=== PATIENT | female | born 1990 | race Caucasian/White ===

== ENCOUNTER 2016-12-26 11:12 | Emergency (ER) | payer OTHER ==
[2016-12-26 11:38] VITALS: BP 144/87
--- NOTE | 2016-12-26 12:02 | UC ---
Respiratory Complaint HPI - HPI Summary HPI Summary: pt presents with onset of cough and nasal congestion. Pt reports being diagnosed with pneumonia ~3 weeks ago. Was given and completed prescription for levaquin. Reports that symptoms were alleviated. states taht now she has dry, hacking cough, chills and nasal congestion. - History of Current Complaint Chief Complaint: UCRespiratory Stated Complaint: COUGH Time Seen by Provider: 12/26/16 11:46 Hx Obtained From: Patient Hx Last Menstrual Period: 12/21/16 ?: No Onset/Duration: Gradual Onset, Lasting Days Severity Initially: Mild Severity Currently: Mild Character: Cough: Nonproductive Aggravating Factors: Deep Breaths, Recumbent Position Associated Signs And Symptoms: Positive: URI, Nasal Congestion Related History: Seasonal Allergies - Risk Factors Pulmonary Embolism Risk Factors: Smoking Cardiac Risk Factors: Smoking - Allergies/Home Medications Allergies/Adverse Reactions: Allergies Allergy/AdvReac Type Severity Reaction Status Date / Time Aspirin Allergy Severe See Comment Verified 12/26/16 11:30 Erythromycin Allergy Severe Hives Verified 12/26/16 11:30 Latex Allergy Severe See Comment Verified 12/26/16 11:30 Home Medications: Home Medications Benzonatate CAP* [Tessalon CAP*] 100 mg PO TID 12/26/16 [History Confirmed 12/26] GuaiFENesin DM* [Robitussin DM*] 5 ml PO Q6H PRN 12/26/16 [History Confirmed 03/09] PMH/Surg Hx/FS Hx/Imm Hx Previously Healthy: Yes Endocrine History Of: Denies: Thyroid Disease Comment Only: Diabetes - FAMILY HX Cardiovascular History Of: Denies: Cardiac Disorders, Hypertension Respiratory History Of: Reports: Asthma Denies: COPD GI/ History Of: Denies: Ulcer Psychological History Of: Reports: Anxiety - Surgical History Surgical History: Yes Surgery Procedure, Year, and Place: R knee; tubes in ears; appendectomy, cholecystectomy, - Family History Known Family History: Positive: None, Hypertension, Diabetes - Social History Lives: With Family Alcohol Use: None Substance Use Type: None Smoking Status (MU): Light Every Day Tobacco Smoker Type: Cigarettes Amount Used/How Often: 3 cigs per day Length of Time of Smoking/Using Tobacco: 10 years Have You Smoked in the Last Year: Yes Household Exposure Type: Cigarettes - Immunization History Most Recent Influenza Vaccination: fall 2015 Review of Systems Constitutional: Chills Skin: Negative Eyes: Negative ENT: Other - nasal congestion Respiratory: Cough Cardiovascular: Negative Gastrointestinal: Negative Genitourinary: Negative Motor: Negative Neurovascular: Negative Musculoskeletal: Negative Neurological: Negative Psychological: Negative All Other Systems Reviewed And Are Negative: Yes Physical Exam Triage Information Reviewed: Yes Appearance: Well-Appearing Vital Signs: Initial Vital Signs Temp 97.5 F 12/26/16 11:32 Pulse 90 12/26/16 11:32 Resp 16 12/26/16 11:32 BP 144/87 12/26/16 11:32 Pulse Ox 97 12/26/16 11:32 Vital Signs Reviewed: Yes ENT Exam: Other ENT: Positive: Nasal congestion Neck exam: Normal Respiratory Exam: Normal Cardiovascular Exam: Normal Musculoskeletal Exam: Normal Neurological Exam: Normal Psychological Exam: Normal Skin Exam: Normal UC Diagnostic Evaluation - Laboratory O2 Sat by Pulse Oximetry: 97 Respiratory Course/Dx - Differential Dx/Diagnosis Differential Diagnosis/HQI/PQRI: Bronchitis, Influenza, Other - URI Provider Diagnoses: URI. cough Discharge - Discharge Plan Condition: Stable Disposition: HOME Prescriptions: Albuterol HFA INHALER* [Ventolin HFA Inhaler*] 1 - 2 puff INH Q4H PRN #1 mdi PRN Reason: Cough predniSONE TAB* [Deltasone TAB*] 30 mg PO DAILY #12 tab Patient Education Materials: Upper Respiratory Infection (ED), Acute Cough (ED) Referrals: [facility] [place] [facility] [Outside] No Primary Care Phys,NOPCP [Primary Care Provider] -
== END 2016-12-26 12:19 | disposition home or self-care (01) ==
LOC: UCEAST 11:12
DX: J06.9 Acute upper respiratory infection, unspecified (principal); R05 Cough; R03.0 Elevated blood-pressure reading, without diagnosis of hypertension; Z88.6 Allergy status to analgesic agent; Z88.1 Allergy status to other antibiotic agents; Z90.49 Acquired absence of other specified parts of digestive tract; F17.210 Nicotine dependence, cigarettes, uncomplicated
CPT/HCPCS: 99212; G0463

== ENCOUNTER 2017-04-16 15:27 | Emergency (ER) | payer MEDICAID, OTHER ==
[2017-04-16] MEDS ORDERED: NS 0.9% 1000 ML* 1,000 ML IV ONE (15:51)
[2017-04-16] MEDS ORDERED: Ondansetron INJ* 2 MG/ML VIAL IV ONE (16:04)
[2017-04-16] MEDS ORDERED: Morphine INJ* 4 MG/ML 1 ML SYRINGE IV ONE (16:04)
--- NOTE | 2017-04-16 16:37 | RAD ---
INDICATION: Kidney stone last week, increased pain. COMPARISON: Comparison is made with a prior CT of the abdomen and pelvis from May 28, 2010. TECHNIQUE: Frontal supine films of the abdomen were obtained. FINDINGS: The small bowel and colon appear nondistended. No significant abnormal calcifications are seen. Several surgical clips are noted in the right upper quadrant consistent with a prior cholecystectomy. IMPRESSION: NO CALCULI ARE SEEN.
[2017-04-16 16:41] LABS: Calcium 9.6 mg/dL (8.6-10.3); EGFR African American 130.3 (>60); EGFR Non-African American 101.3 (>60); Globulin 3.2 g/dL (2-4); Potassium 4.1 mmol/L (3.5-5.0); Total Bilirubin 0.4 mg/dL (0.2-1.0); Total Protein 7.2 g/dL (6.4-8.9); Urine Bacteria Absent (Absent); Urine Bilirubin Negative (Negative); Urine Glucose Negative (Negative); Urine Nitrite Negative (Negative)
[2017-04-16 17:06] LABS: Hematocrit 45 % (35-47); Hemoglobin 14.8 g/dl (12.0-16.0); Mean Corpuscular HGB Conc 33 g/dl (31-36); Mean Corpuscular Hemoglobin 28 pg (27-31); Mean Corpuscular Volume 83 fL (80-97); Mean Platelet Volume 8 um3 (7.4-10.4); Red Blood Count 5.38 10^6/ul (4.0-5.4); Red Cell Distribution Width 15 % (10.5-15); White Blood Count 11.1 10^3/ul (3.5-10.8)
--- NOTE | 2017-04-16 17:16 | ED ---
GI/ HPI - HPI Summary HPI Summary: 26F presents with bilateral flank pain for a week. She states she went to [facility] and had a work up on 04/10 and had a kidney stone unsure what side or how large. She states she was taking flomax and norco and it was helping. She finished her flomax a couple days ago and states the pain increased. She states she had thought she had passed the stone but never felt it pass and now is unsure if it did pass. She admits to nausea occasionally when the pain is intense. She denies any abdominal pain, dysuria, hematuria, frequency, urgency , diarrhea, vaginal discharge, fever, constipation, or vomiting. She has a family history of kidney stones. - History of Current Complaint Chief Complaint: EDFlankPain Time Seen by Provider: 04/16/17 15:50 Stated Complaint: LOWER BACK PAIN Pain Intensity: 8 - Allergy/Home Medications Allergies/Adverse Reactions: Allergies Allergy/AdvReac Type Severity Reaction Status Date / Time Aspirin Allergy Severe See Comment Verified 12/26/16 11:30 Erythromycin Allergy Severe Hives Verified 12/26/16 11:30 Latex Allergy Severe See Comment Verified 12/26/16 11:30 PMH/Surg Hx/FS Hx/Imm Hx Endocrine/Hematology History: Denies: Hx Thyroid Disease Comment Only: Hx Diabetes - FAMILY HX Cardiovascular History: Denies: Hx Hypertension Respiratory History: Reports: Hx Asthma Denies: Hx Chronic Obstructive Pulmonary Disease (COPD) GI History: Denies: Hx Ulcer Psychiatric History: Reports: Hx Anxiety - Surgical History Surgery Procedure, Year, and Place: R knee; tubes in ears; appendectomy, cholecystectomy, - Immunization History Date of Tetanus Vaccine: within 10 years per pt. Date of Influenza Vaccine: 09/2012 Infectious Disease History: No Infectious Disease History: Denies: Hx Clostridium Difficile, Hx Hepatitis, Hx Human Immunodeficiency Virus (HIV), Hx of Known/Suspected MRSA, Hx Shingles, Hx Tuberculosis, Hx Known/ Suspected VRE, Hx Known/Suspected VRSA, History Other Infectious Disease, Traveled Outside the [place] in Last 30 Days - Family History Known Family History: Positive: None, Hypertension, Diabetes, Renal Disease - Social History Alcohol Use: None Substance Use Type: Reports: None Smoking Status (MU): Light Every Day Tobacco Smoker Type: Cigarettes Amount Used/How Often: 3 cigs per day Length of Time of Smoking/Using Tobacco: 10 years Have You Smoked in the Last Year: Yes Review of Systems Negative: Fever Negative: Chest Pain Negative: Shortness Of Breath Positive: Nausea. Negative: Abdominal Pain, Vomiting, Diarrhea Positive: flank pain. Negative: dysuria All Other Systems Reviewed And Are Negative: Yes Physical Exam Triage Information Reviewed: Yes Vital Signs On Initial Exam: Initial Vitals Temp Pulse Resp BP Pulse Ox 98.1 F 91 17 176/101 98 04/16/17 15:30 04/16/17 15:30 04/16/17 15:30 04/16/17 15:30 04/16/17 15:30 Vital Signs Reviewed: Yes Appearance: Positive: Pain Distress Skin: Positive: Warm, Dry Head/Face: Positive: Normal Head/Face Inspection Eyes: Positive: Normal, Conjunctiva Clear ENT: Positive: Normal ENT inspection, Pharynx normal, TMs normal Respiratory/Lung Sounds: Positive: Clear to Auscultation, Breath Sounds Present Cardiovascular: Positive: Normal, RRR Abdomen Description: Positive: Nontender, Soft, CVA Tenderness (R), CVA Tenderness (L) Bowel Sounds: Positive: Present - Miranda Coma Scale Coma Scale Total: 15 Diagnostics - Vital Signs Vital Signs Temp Pulse Resp BP Pulse Ox 04/16/17 16:30 89 96 04/16/17 16:23 16 04/16/17 16:00 96 99 04/16/17 15:44 96 98 04/16/17 15:43 158/77 04/16/17 15:32 97.8 F 90 16 176/101 100 04/16/17 15:30 98.1 F 91 17 176/101 98 - Laboratory Lab Results: Lab Results 04/16/17 04/16/17 04/16/17 Range/Units 16:10 16:10 16:52 WBC 11.1 H (3.5-10.8) 10^3/ul RBC 5.38 (4.0-5.4) 10^6/ul Hgb 14.8 (12.0-16.0) g/dl Hct 45 (35-47) % MCV 83 (80-97) fL MCH 28 (27-31) pg MCHC 33 (31-36) g/dl RDW 15 (10.5-15) % Plt Count 248 (150-450) 10^3/ul MPV 8 (7.4-10.4) um3 Neut % (Auto) 64.8 (38-83) % Lymph % (Auto) 25.4 (25-47) % [place] % (Auto) 5.5 (1-9) % Eos % (Auto) 3.1 (0-6) % Baso % (Auto) 1.2 (0-2) % Absolute Neuts (auto) 7.2 (1.5-7.7) 10^3/ul Absolute Lymphs (auto) 2.8 (1.0-4.8) 10^3/ul Absolute Monos (auto) 0.6 (0-0.8) 10^3/ul Absolute Eos (auto) 0.3 (0-0.6) 10^3/ul Absolute Basos (auto) 0.1 (0-0.2) 10^3/ul Absolute Nucleated RBC 0.01 10^3/ul Nucleated RBC % 0 Sodium 136 (133-145) mmol/L Potassium 4.1 (3.5-5.0) mmol/L Chloride 105 (101-111) mmol/L Carbon Dioxide 23 (22-32) mmol/L Anion Gap 8 (2-11) mmol/L BUN 9 (6-24) mg/dL Creatinine 0.69 (0.51-0.95) mg/dL Est GFR ( Amer) 130.3 (>60) Est GFR (Non-Af Amer) 101.3 (>60) BUN/Creatinine Ratio 13.0 (8-20) Glucose 86 (70-100) mg/dL Calcium 9.6 (8.6-10.3) mg/dL Total Bilirubin 0.40 (0.2-1.0) mg/dL AST 16 (13-39) U/L ALT 11 (7-52) U/L Alkaline Phosphatase 48 (34-104) U/L C-React Prot High Sens 5.46 mg/L Total Protein 7.2 (6.4-8.9) g/dL Albumin 4.0 (3.2-5.2) g/dL Globulin 3.2 (2-4) g/dL Albumin/Globulin Ratio 1.3 (1-3) Urine Color Yellow Urine Appearance Cloudy Urine pH 5.0 (5-9) Ur Specific [place] 1.019 (1.010-1.030) Urine Protein Negative (Negative) Urine Ketones Negative (Negative) Urine Blood 2+ H (Negative) Urine Nitrate Negative (Negative) Urine Bilirubin Negative (Negative) Urine Urobilinogen Negative (Negative) Ur Leukocyte Esterase Negative (Negative) Urine WBC (Auto) Trace(0-5/hpf) (Absent) Urine RBC (Auto) 3+(>10/hpf) H (Absent) Ur Squamous Epith Cells Present H (Absent) Calcium Oxalate Crystal Present H (Absent) Urine Bacteria Absent (Absent) Hyaline Casts Present H (Absent) Urine Glucose Negative (Negative) Result Diagrams: 04/16/17 16:52 04/16/17 16:10 Lab Statement: Any lab studies that have been ordered have been reviewed, and results considered in the medical decision making process. - Radiology abd Xray Interpretation: No Acute Changes - no stone seen Radiology Interpretation Completed By: Radiologist LORRAINE Course/Dx - Course Course Of Treatment: 26F presents with bilateral flank pain for a week. She states she went to [facility] and had a work up on 04/10 and had a kidney stone unsure what side or how large. She states she was taking flomax and norco and it was helping but then the pain increased. She denies any new symptoms. on exam pos CVA tendernes bilateral greatest on right. labs wbc 11.1, crp 5, u/a shows blood. xray shows no stone. tried to get records from [facility] but unable to get them. discussed with dr steven and said due to blood and age is safe to assume that stone has not passed and is no infection at this point so safe to discharge without CT. discussed this with patient who does not want the CT. will assume [facility] sent home with appropiate size kidney stone that was able to pass on own. patient understands and agrees with plan - Diagnoses Differential Diagnoses - Female: Pyelonephritis, Renal Calculi, Renal Colic, Urinary Tract Infection, Ureteral Calculi Provider Diagnoses: Kidney stone Discharge - Discharge Plan Condition: Good Disposition: HOME Prescriptions: Ondansetron ODT TAB* [Zofran 4 MG Odt TAB*] 4 mg PO Q6H PRN #20 tab.odt PRN Reason: Nausea Tamsulosin CAP* [Flomax CAP*] 0.4 mg PO DAILY #7 cap oxyCODONE/Acetamin 5/325 MG* [Percocet 5/325 TAB*] 1 tab PO Q6H PRN #16 tab MDD 4 PRN Reason: Pain Patient Education Materials: Kidney Stones (ED) Referrals: No Primary Care Phys,NOPCP [Primary Care Provider] - Tu Dinero MD [Medical Doctor] - Additional Instructions: although no kidney stone was seen on xray today, we will assume still have kidney stone Take ibuprofen every 6 hours and narcotic as needed every 6 hours Inc fiber intake Take Zofran every 6 hours for nausea Take Flomax daily until stone expelled, make sure stand up slowly Follow up with urology Return to ED if develop fever, or any new or worsening symptoms
[2017-04-16 17:31] VITALS: BP 123/76
== END 2017-04-16 17:31 | disposition home or self-care (01) ==
LOC: ED 15:27
DX: N20.0 Calculus of kidney (principal); R10.84 Generalized abdominal pain; F17.210 Nicotine dependence, cigarettes, uncomplicated; R11.0 Nausea
CPT/HCPCS: 36415; 74000; 80053; 81003; 81015; 85025; 86141; 96374; 96375; 99284; J2270; J2405

== ENCOUNTER 2017-05-24 15:56 | Emergency (ER) | payer MEDICAID, OTHER ==
[2017-05-24 18:52] LABS: Hematocrit 45 % (35-47); Hemoglobin 15.1 g/dl (12.0-16.0); Mean Corpuscular HGB Conc 34 g/dl (31-36); Mean Corpuscular Hemoglobin 29 pg (27-31); Mean Corpuscular Volume 86 fL (80-97); Mean Platelet Volume 8 um3 (7.4-10.4); Red Blood Count 5.26 10^6/ul (4.0-5.4); Red Cell Distribution Width 15 % (10.5-15); White Blood Count 11.6 10^3/ul (3.5-10.8)
[2017-05-24 19:09] LABS: ALT 10 U/L (7-52); AST 16 U/L (13-39); Albumin 4.2 g/dL (3.2-5.2); Alkaline Phosphatase 50 U/L (34-104); Anion Gap 7 mmol/L (2-11); BUN/Creatinine Ratio 10.3 (8-20); Blood Urea Nitrogen 7 mg/dL (6-24); CO2 Carbon Dioxide 24 mmol/L (22-32); Calcium 9.4 mg/dL (8.6-10.3); Chloride 106 mmol/L (101-111); EGFR African American 132.5 (>60); Globulin 3.3 g/dL (2-4); Glucose 87 mg/dL (70-100); Lipase 27 U/L (11.0-82.0); Potassium 3.9 mmol/L (3.5-5.0); Sodium 137 mmol/L (133-145); Total Protein 7.5 g/dL (6.4-8.9)
[2017-05-24 19:12] LABS: Urine Bacteria Absent (Absent); Urine Bilirubin Negative (Negative); Urine Glucose Negative (Negative); Urine Nitrite Negative (Negative)
[2017-05-24] MEDS ORDERED: NS 0.9% 1000 ML* 1,000 ML IV ONE (19:33)
[2017-05-24] MEDS ORDERED: Ondansetron INJ* 2 MG/ML VIAL IV ONE (19:33)
[2017-05-24] MEDS ORDERED: HYDROmorphone* 1 MG/ML 1 ML SYR IV ONE (19:33)
[2017-05-24 19:42] VITALS: BP 125/93
--- NOTE | 2017-05-24 20:00 | RAD ---
INDICATION: Right flank pain COMPARISON: CT January 28, 2009 TECHNIQUE: Noncontrast axial source images were acquired from the level hemidiaphragms to the symphysis pubis as part of CT imaging for renal stone. Lung bases: The lung bases are clear. Liver: The liver is normal in size. Noncontrast imaging shows no evidence of a hepatic mass or ductal dilatation. Gallbladder: Cholecystectomy. Spleen: The spleen is normal in size. The noncontrast CT appearance is normal. Pancreas: Noncontrast imaging shows no pancreatic mass or ductal dilitation. Adrenal glands: No masses are identified. Kidneys/Bladder: There is no evidence of nephrolithiasis or CT evidence of hydronephrosis. Noncontrast imaging shows no evidence of a renal mass. The bladder is unremarkable.. Adenopathy: There is no evidence of intraperitoneal or retroperitoneal adenopathy. Evaluation is limited without oral contrast. Fluid collections: There are no free or localized fluid collections. Vessels: The aorta and iliac vessels are normal in caliber. There are no significant atherosclerotic changes. The IVC appears normal Pelvic organs: The uterus and adnexa appear normal GI tract: Evaluation of the bowel is limited without oral contrast. The stomach, small bowel, and lower GI tract appear grossly normal. There are no obstructive findings. There is prior appendectomy.. Soft tissues: No soft tissue abnormalities of the extraperitoneal abdomen or pelvis are identified. Osseous structures: There are no acute osseous findings. IMPRESSION: NO CT EVIDENCE OF UROLITHIASIS. NO ACUTE CT FINDINGS.
[2017-05-24 21:01] LABS: C Reactive Protein 5.55 mg/L (< 5.00)
--- NOTE | 2017-05-26 21:13 | ED ---
I, Ketan,Keara, scribed for Jeffrey eLong MD on 05/24/17 at 1732 . GI/ HPI - HPI Summary HPI Summary: This 26 y/o female presents to ED for gradually worsening right sided abd/flank pain since 3 days ago. Pain is constant but waxing and waning, and it radiates to right suprapubic area. Positive increased urinary urgency and decreased urinary output. Movement makes the pain worse. PMHx includes ovarian cyst and kidney stones. Pt does not take any medication. LMP was 05/09/2017. - History of Current Complaint Chief Complaint: EDFlankPain Time Seen by Provider: 05/24/17 17:25 Stated Complaint: RT FLANK PAIN Hx Obtained From: Patient, Medical Records Onset/Duration: Started Days Ago, Atraumatic, Still Present Pain Intensity: 8 Location of Pain: Flank - right Pain Radiates to: RLQ Associated Signs and Symptoms: Positive: Flank Pain - right. Negative: Fever Aggravating Factor(s): Movement Alleviating Factor(s): Nothing - Allergy/Home Medications Allergies/Adverse Reactions: Allergies Allergy/AdvReac Type Severity Reaction Status Date / Time Aspirin Allergy Severe See Comment Verified 12/26/16 11:30 Erythromycin Allergy Severe Hives Verified 12/26/16 11:30 Latex Allergy Severe See Comment Verified 12/26/16 11:30 PMH/Surg Hx/FS Hx/Imm Hx Endocrine/Hematology History: Denies: Hx Thyroid Disease Comment Only: Hx Diabetes - FAMILY HX Cardiovascular History: Denies: Hx Hypertension Respiratory History: Reports: Hx Asthma Denies: Hx Chronic Obstructive Pulmonary Disease (COPD) GI History: Denies: Hx Ulcer Psychiatric History: Reports: Hx Anxiety - Surgical History Surgery Procedure, Year, and Place: R knee; tubes in ears; appendectomy, cholecystectomy, - Immunization History Date of Tetanus Vaccine: within 10 years per pt. Date of Influenza Vaccine: 09/2012 Infectious Disease History: Denies: Hx Clostridium Difficile, Hx Hepatitis, Hx Human Immunodeficiency Virus (HIV), Hx of Known/Suspected MRSA, Hx Shingles, Hx Tuberculosis, Hx Known/ Suspected VRE, Hx Known/Suspected VRSA, History Other Infectious Disease, Traveled Outside the [place] in Last 30 Days - Family History Known Family History: Positive: Hypertension, Diabetes, Renal Disease - Social History Alcohol Use: None Substance Use Type: Reports: None Smoking Status (MU): Light Every Day Tobacco Smoker Type: Cigarettes Amount Used/How Often: 3 cigs per day Length of Time of Smoking/Using Tobacco: 10 years Have You Smoked in the Last Year: Yes Review of Systems Negative: Fever Positive: flank pain - right flank pain, urgency - increased, other - decreased output All Other Systems Reviewed And Are Negative: Yes Physical Exam Triage Information Reviewed: Yes Vital Signs On Initial Exam: Initial Vitals Temp Pulse Resp BP Pulse Ox 97.4 F 104 20 176/125 100 05/24/17 16:05 05/24/17 16:05 05/24/17 16:05 05/24/17 16:05 05/24/17 16:05 Vital Signs Reviewed: Yes Appearance: Positive: Well-Appearing, Pain Distress, Obese Skin: Positive: Warm, Skin Color Reflects Adequate Perfusion, Dry Head/Face: Positive: Normal Head/Face Inspection Eyes: Positive: Normal ENT: Positive: Normal ENT inspection Neck: Positive: Supple, Nontender Respiratory/Lung Sounds: Positive: Breath Sounds Present Cardiovascular: Positive: Pulses are Symmetrical in both Upper and Lower Extremities Abdomen Description: Positive: Other: - RLQ tenderness Musculoskeletal: Positive: Normal Psychiatric: Positive: Normal AVPU Assessment: Alert Diagnostics - Vital Signs Vital Signs Temp Pulse Resp BP Pulse Ox 05/24/17 17:10 99 97 05/24/17 16:07 164/117 05/24/17 16:05 97.4 F 104 20 176/125 100 - Laboratory Lab Results: Lab Results 05/24/17 05/24/17 05/24/17 Range/Units 17:07 18:40 18:40 WBC 11.6 H (3.5-10.8) 10^3/ul RBC 5.26 (4.0-5.4) 10^6/ul Hgb 15.1 (12.0-16.0) g/dl Hct 45 (35-47) % MCV 86 (80-97) fL MCH 29 (27-31) pg MCHC 34 (31-36) g/dl RDW 15 (10.5-15) % Plt Count 273 (150-450) 10^3/ul MPV 8 (7.4-10.4) um3 Neut % (Auto) 67.8 (38-83) % Lymph % (Auto) 24.2 L (25-47) % [place] % (Auto) 4.4 (1-9) % Eos % (Auto) 2.6 (0-6) % Baso % (Auto) 1.0 (0-2) % Absolute Neuts (auto) 7.9 H (1.5-7.7) 10^3/ul Absolute Lymphs (auto) 2.8 (1.0-4.8) 10^3/ul Absolute Monos (auto) 0.5 (0-0.8) 10^3/ul Absolute Eos (auto) 0.3 (0-0.6) 10^3/ul Absolute Basos (auto) 0.1 (0-0.2) 10^3/ul Absolute Nucleated RBC 0 10^3/ul Nucleated RBC % 0 Sodium 137 (133-145) mmol/L Potassium 3.9 (3.5-5.0) mmol/L Chloride 106 (101-111) mmol/L Carbon Dioxide 24 (22-32) mmol/L Anion Gap 7 (2-11) mmol/L BUN 7 (6-24) mg/dL Creatinine 0.68 (0.51-0.95) mg/dL Est GFR ( Amer) 132.5 (>60) Est GFR (Non-Af Amer) 103.0 (>60) BUN/Creatinine Ratio 10.3 (8-20) Glucose 87 (70-100) mg/dL Lactic Acid (0.5-2.0) mmol/L Calcium 9.4 (8.6-10.3) mg/dL Total Bilirubin 0.30 (0.2-1.0) mg/dL AST 16 (13-39) U/L ALT 10 (7-52) U/L Alkaline Phosphatase 50 (34-104) U/L C-Reactive Protein 5.55 H (< 5.00) mg/L Total Protein 7.5 (6.4-8.9) g/dL Albumin 4.2 (3.2-5.2) g/dL Globulin 3.3 (2-4) g/dL Albumin/Globulin Ratio 1.3 (1-3) Lipase 27 (11.0-82.0) U/L Beta HCG, Quant < 0.60 mIU/mL Urine Color [place] Urine Appearance Turbid Urine pH 6.0 (5-9) Ur Specific [place] 1.026 (1.010-1.030) Urine Protein Negative (Negative) Urine Ketones Trace H (Negative) Urine Blood 2+ H (Negative) Urine Nitrate Negative (Negative) Urine Bilirubin Negative (Negative) Urine Urobilinogen Negative (Negative) Ur Leukocyte Esterase Negative (Negative) Urine WBC (Auto) Absent (Absent) Urine RBC (Auto) 3+(>10/hpf) H (Absent) Ur Squamous Epith Cells Present H (Absent) Amorphous Crystals Present H (Absent) Urine Bacteria Absent (Absent) Urine Glucose Negative (Negative) Urine Ascorbic Acid * H (Negative) 05/24/17 Range/Units 18:40 WBC (3.5-10.8) 10^3/ul RBC (4.0-5.4) 10^6/ul Hgb (12.0-16.0) g/dl Hct (35-47) % MCV (80-97) fL MCH (27-31) pg MCHC (31-36) g/dl RDW (10.5-15) % Plt Count (150-450) 10^3/ul MPV (7.4-10.4) um3 Neut % (Auto) (38-83) % Lymph % (Auto) (25-47) % [place] % (Auto) (1-9) % Eos % (Auto) (0-6) % Baso % (Auto) (0-2) % Absolute Neuts (auto) (1.5-7.7) 10^3/ul Absolute Lymphs (auto) (1.0-4.8) 10^3/ul Absolute Monos (auto) (0-0.8) 10^3/ul Absolute Eos (auto) (0-0.6) 10^3/ul Absolute Basos (auto) (0-0.2) 10^3/ul Absolute Nucleated RBC 10^3/ul Nucleated RBC % Sodium (133-145) mmol/L Potassium (3.5-5.0) mmol/L Chloride (101-111) mmol/L Carbon Dioxide (22-32) mmol/L Anion Gap (2-11) mmol/L BUN (6-24) mg/dL Creatinine (0.51-0.95) mg/dL Est GFR ( Amer) (>60) Est GFR (Non-Af Amer) (>60) BUN/Creatinine Ratio (8-20) Glucose (70-100) mg/dL Lactic Acid 1.5 (0.5-2.0) mmol/L Calcium (8.6-10.3) mg/dL Total Bilirubin (0.2-1.0) mg/dL AST (13-39) U/L ALT (7-52) U/L Alkaline Phosphatase (34-104) U/L C-Reactive Protein (< 5.00) mg/L Total Protein (6.4-8.9) g/dL Albumin (3.2-5.2) g/dL Globulin (2-4) g/dL Albumin/Globulin Ratio (1-3) Lipase (11.0-82.0) U/L Beta HCG, Quant mIU/mL Urine Color Urine Appearance Urine pH (5-9) Ur Specific [place] (1.010-1.030) Urine Protein (Negative) Urine Ketones (Negative) Urine Blood (Negative) Urine Nitrate (Negative) Urine Bilirubin (Negative) Urine Urobilinogen (Negative) Ur Leukocyte Esterase (Negative) Urine WBC (Auto) (Absent) Urine RBC (Auto) (Absent) Ur Squamous Epith Cells (Absent) Amorphous Crystals (Absent) Urine Bacteria (Absent) Urine Glucose (Negative) Urine Ascorbic Acid (Negative) Result Diagrams: 05/24/17 18:40 05/24/17 18:40 Lab Statement: Any lab studies that have been ordered have been reviewed, and results considered in the medical decision making process. - CT CT Ab/P CT Interpretation: No Acute Changes - No urolithiasis CT Interpretation Completed By: Radiologist Re-Evaluation - Re-Evaluation First Eval Re-Evaluation Time: 20:18 Comment: MD in room to update pt on bloodwork, CT, and UA results. GIGU Course/Dx - Course Course Of Treatment: Ms. Arambula presented with right flank pain and a history of kidney stones. She had a slight leukocytosis and microscopic hematuria but her CT was negative. She did feel better and went home to F/U if symptoms returned. - Diagnoses Provider Diagnoses: Abdominal pain Discharge - Discharge Plan Condition: Stable Disposition: HOME Patient Education Materials: Abdominal Pain (ED) Referrals: [facility] [Outside] - 2 Days The documentation as recorded by the Ktean horner Soohyun accurately reflects the service I personally performed and the decisions made by me, Jeffrey Leong MD.
== END 2017-05-24 21:13 | disposition home or self-care (01) ==
LOC: ED 15:56
DX: R10.31 Right lower quadrant pain (principal); Z87.442 Personal history of urinary calculi; R10.813 Right lower quadrant abdominal tenderness; Z88.6 Allergy status to analgesic agent; F41.9 Anxiety disorder, unspecified; F17.210 Nicotine dependence, cigarettes, uncomplicated
CPT/HCPCS: 36415; 74176; 80053; 81003; 81015; 83605; 83690; 84702; 85025; 86140; 96360; 96374; 96375; 99283; J1170; J2405

== ENCOUNTER → 2017-12-21 15:53 | Emergency (ER) | payer OTHER | END | disposition left against medical advice (07) | LOC: ED 15:53 | DX: R10.9 Unspecified abdominal pain (principal); Z53.21 Procedure and treatment not carried out due to patient leaving prior to being seen by health care provider ==

== ENCOUNTER 2018-01-05 17:25 | Emergency (ER) | payer OTHER ==
[2018-01-05 17:30] VITALS: BP 157/95
== END 2018-01-05 18:35 | disposition left against medical advice (07) ==
LOC: ED 17:25
DX: M54.9 Dorsalgia, unspecified (principal); Z53.21 Procedure and treatment not carried out due to patient leaving prior to being seen by health care provider
CPT/HCPCS: 99281

== ENCOUNTER 2018-01-16 13:28 | Emergency (ER) | payer OTHER ==
[2018-01-16 13:37] VITALS: BP 109/71
--- NOTE | 2018-01-16 13:58 | UC ---
Dental HPI - HPI Summary HPI Summary: 27yo F presents with 1mo hx of dental pain. She states today her pain is worse in the R upper molars. She is due for extractions at [facility] on January 26. She just finished Amoxicillin and is on ibuprofen 600mg and Gabapentin 600mg tid for pain. She denies vomiting, fever or facial swelling. - History of Current Complaint Chief Complaint: UCDentalProblem Stated Complaint: DENTAL COMPLAINT Time Seen by Provider: 01/16/18 13:43 Hx Obtained From: Patient Hx Last Menstrual Period: now Pain Intensity: 7 - Allergies/Home Medications Allergies/Adverse Reactions: Allergies Allergy/AdvReac Type Severity Reaction Status Date / Time aspirin Allergy Hives Verified 01/16/18 13:38 erythromycin base Allergy Hives Verified 01/16/18 13:38 ketorolac [From Toradol] Allergy Hives Verified 01/16/18 13:38 latex Allergy See Comment Verified 01/16/18 13:38 meloxicam Allergy Hives Verified 01/16/18 13:38 Home Medications: Home Medications Escitalopram Oxalate [Lexapro 20 mg] 1 tab PO DAILY 01/16/18 [History Confirmed 01/16/18] Gabapentin CAP(*) [Neurontin 300 CAP(*)] 600 mg PO TID 01/16/18 [History Confirmed 01/16/18] risperiDONE TAB* [Risperdal*] 1 tab PO DAILY 01/16/18 [History Confirmed ] PMH/Surg Hx/FS Hx/Imm Hx Psychological History: Anxiety, Depression - Surgical History Surgical History: Yes Surgery Procedure, Year, and Place: R knee; tubes in ears; appendectomy, cholecystectomy, - Family History Known Family History: Positive: None, Hypertension, Diabetes, Renal Disease - Social History Alcohol Use: None Substance Use Type: None Smoking Status (MU): Light Every Day Tobacco Smoker Type: Cigarettes Amount Used/How Often: 3 cigs per day Length of Time of Smoking/Using Tobacco: 10 years Have You Smoked in the Last Year: Yes Household Exposure Type: Cigarettes - Immunization History Most Recent Influenza Vaccination: fall 2015 Review of Systems Constitutional: Negative ENT: Other - dental pain in several sites, no swelling or drainage Respiratory: Negative Cardiovascular: Negative Psychological: Anxious All Other Systems Reviewed And Are Negative: Yes Physical Exam Triage Information Reviewed: Yes Appearance: Well-Appearing, No Pain Distress Vital Signs: Initial Vital Signs Temp 36.6 C 01/16/18 13:32 Pulse 116 01/16/18 13:32 Resp 18 01/16/18 13:32 BP 109/71 01/16/18 13:32 Pulse Ox 98 01/16/18 13:32 Vital Signs Reviewed: Yes Eye Exam: Normal ENT: Positive: Other - mult dental erosions, noted most in L sided molars. 3rd molars non-erupted. No extraction sites. No gingival induration or area of abscess. R upper 1st/2nd molars of concern today have caries but are not eroded to gum line. Dental: Positive: Gross Decay/Caries @ Neck: Positive: Supple, No Lymphadenopathy Respiratory: Positive: Lungs clear, Normal breath sounds Cardiovascular Exam: Normal Abdomen Description: Positive: Other: - obese Musculoskeletal Exam: Normal Neurological: Positive: Alert, Other: - nl gait Psychological: Positive: Other: - tearful when presented with option of dental block Skin Exam: Normal Dental Complaint Course/Dx - Course Course Of Treatment: pt offered dental block which she refused. Mult prior visits, Rx for opiates. I had not offered this as an option and she didnt push for it. Will extend Rx for amoxil and cont ibuprofen 600, gabapentin. Due for extractions January 26. - Differential Dx/Diagnosis Differential Diagnosis/Dx: Dental Abscess, Dental Caries Provider Diagnoses: dental pain, bilateral. multiple dental caries Discharge - Sign-Out/Discharge Documenting (check all that apply): Discharge - Discharge Plan Condition: Good Disposition: HOME Prescriptions: Amoxicillin PO (*) [Amoxicillin 500 MG CAP*] 500 mg PO TID #30 cap Chlorhexidine MOUTHWASH 0.12%* [Peridex Mouth Wash 0.12%*] 15 ml MT BID #1 btl Patient Education Materials: Toothache (ED) Referrals: No Primary Care Phys,NOPCP [Primary Care Provider] - Additional Instructions: See your dentist as scheduled for extractions. Cont to cut back on smoking. Continue ibuprofen/gabapentin. Return if worse, fevers, vomiting or other concerns. Follow up with Dr Tapia for further medication or [facility] to schedule sooner appt. - Billing Disposition and Condition Condition: GOOD Disposition: HOME
== END 2018-01-16 14:08 | disposition home or self-care (01) ==
LOC: UCEAST 13:28
DX: K02.9 Dental caries, unspecified (principal); F17.210 Nicotine dependence, cigarettes, uncomplicated; Z88.6 Allergy status to analgesic agent; Z88.3 Allergy status to other anti-infective agents; Z88.8 Allergy status to other drugs, medicaments and biological substances
CPT/HCPCS: 99212; G0463

== ENCOUNTER 2018-01-18 03:42 | Emergency (ER) | payer OTHER ==
[2018-01-18] MEDS ORDERED: diPHENhydraMINE IV* 50 MG/ML 1 ml VIAL (BENADRYL) IV ONE (03:52)
[2018-01-18] MEDS ORDERED: NS 0.9% 1000 ML* 1,000 ML IV ONE (03:52)
[2018-01-18] MEDS ORDERED: Ondansetron INJ* 2 MG/ML VIAL IV ONE (03:54)
[2018-01-18 04:27] LABS: ABS Basophils 0 10^3/ul (0-0.2); ABS Eosinophils 0.5 10^3/ul (0-0.6); ABS Monocytes 0.5 10^3/ul (0-0.8); ABS Neutrophils 5.6 10^3/ul (1.5-7.7); ABS Nucleated RBC 0 10^3/ul; Eosinophil % 5.1 % (0-6); Hematocrit 41 % (35-47); Lymphocyte % 31.3 % (25-47); Mean Corpuscular HGB Conc 34 g/dl (31-36); Mean Corpuscular Hemoglobin 29 pg (27-31); Mean Corpuscular Volume 85 fL (80-97); Mean Platelet Volume 7.7 um3 (7.4-10.4); Nucleated Red Blood Cells % 0; Platelet Count 244 10^3/ul (150-450); Red Blood Count 4.87 10^6/ul (4.0-5.4); Red Cell Distribution Width 15 % (10.5-15); White Blood Count 9.7 10^3/ul (3.5-10.8)
[2018-01-18 04:43] LABS: EGFR Non-African American 102.3 (>60)
[2018-01-18] MEDS ORDERED: Hyoscyamine TAB* 0.125 MG PO ONE (04:57)
[2018-01-18] MEDS ORDERED: Famotidine TAB* 20 MG PO ONE (04:57)
[2018-01-18 05:13] VITALS: BP 157/91
--- NOTE | 2018-01-18 05:36 | ED ---
Steffanie Lu Nilda, scribed for Abram Heaton MD on 01/18/18 at 0401 . Abdominal Pain/Female - HPI Summary HPI Summary: This patient is a 27 year old F presenting to [facility] with a chief complaint of constant sharp upper abd pain for the past day. The patient rates the pain 8/10 in severity. Symptoms aggravated and alleviated by nothing. Patient reports diarrhea (multiple times per day) for the past 10 days, and denies constipation. Medications include Gabapentin. She was also recently prescribed Amoxicillin for dental pain. Medical records reveal pt has been on various pain medications in recent months including Hydrocodone, Vicodin, Tylenol 3, and Percocet. Pt states she last took pain medications 1.5 weeks ago. LNMP ended yesterday. - History of Current Complaint Chief Complaint: EDAbdPain Stated Complaint: ABD PAIN Hx Obtained From: Patient Hx Last Menstrual Period: now Onset/Duration: Sudden Onset, Lasting Days, Still Present Timing: Constant Severity Currently: Severe Pain Intensity: 8 Pain Scale Used: 0-10 Numeric Location: Discrete At: RUQ, Discrete At: LUQ Radiates: No Aggravating Factor(s): Nothing Alleviating Factor(s): Nothing Associated Signs and Symptoms: Positive: Diarrhea. Negative: Constipation Allergies/Adverse Reactions: Allergies Allergy/AdvReac Type Severity Reaction Status Date / Time aspirin Allergy Hives Verified 01/16/18 13:38 erythromycin base Allergy Hives Verified 01/16/18 13:38 ketorolac [From Toradol] Allergy Hives Verified 01/16/18 13:38 latex Allergy See Comment Verified 01/16/18 13:38 meloxicam Allergy Hives Verified 01/16/18 13:38 PMH/Surg Hx/FS Hx/Imm Hx Endocrine/Hematology History: Denies: Hx Thyroid Disease Comment Only: Hx Diabetes - FAMILY HX Cardiovascular History: Denies: Hx Hypertension Respiratory History: Reports: Hx Asthma Denies: Hx Chronic Obstructive Pulmonary Disease (COPD) GI History: Denies: Hx Ulcer Psychiatric History: Reports: Hx Anxiety - Surgical History Surgery Procedure, Year, and Place: R knee; tubes in ears; appendectomy, cholecystectomy, - Immunization History Date of Tetanus Vaccine: within 10 years per pt. Date of Influenza Vaccine: 09/2012 Infectious Disease History: No Infectious Disease History: Denies: Hx Clostridium Difficile, Hx Hepatitis, Hx Human Immunodeficiency Virus (HIV), Hx of Known/Suspected MRSA, Hx Shingles, Hx Tuberculosis, Hx Known/ Suspected VRE, Hx Known/Suspected VRSA, History Other Infectious Disease, Traveled Outside the [place] in Last 30 Days - Family History Known Family History: Positive: Hypertension, Diabetes, Renal Disease - Social History Alcohol Use: None Substance Use Type: Reports: None Smoking Status (MU): Light Every Day Tobacco Smoker Type: Cigarettes Amount Used/How Often: 3 cigs per day Length of Time of Smoking/Using Tobacco: 10 years Have You Smoked in the Last Year: Yes Review of Systems Negative: Shortness Of Breath Positive: Abdominal Pain, Diarrhea, Other - negative constipation All Other Systems Reviewed And Are Negative: Yes Physical Exam - Summary Physical Exam Summary: Appearance: no pain distress, obese Skin: warm, dry, reflects adequate perfusion Head/face: normal Eyes: EOMI, RUPESH ENT: normal Neck: supple, non-tender Respiratory: CTA, breath sounds present Cardiovascular: RRR, pulses symmetrical Abdomen: non-tender, soft Bowel sounds: present Musculoskeletal: normal, strength/ROM intact Neuro: normal, sensory motor intact, A&Ox3 Triage Information Reviewed: Yes Vital Signs On Initial Exam: Initial Vitals Temp Pulse Resp BP Pulse Ox 97.5 F 123 20 163/109 97 01/18/18 03:46 01/18/18 03:46 01/18/18 03:46 01/18/18 03:46 01/18/18 03:46 Vital Signs Reviewed: Yes Diagnostics - Vital Signs Vital Signs Temp Pulse Resp BP Pulse Ox 01/18/18 03:46 97.5 F 123 20 163/109 97 - Laboratory Lab Results: Lab Results 01/18/18 01/18/18 Range/Units 04:22 04:22 WBC 9.7 (3.5-10.8) 10^3/ul RBC 4.87 (4.0-5.4) 10^6/ul Hgb 14.0 (12.0-16.0) g/dl Hct 41 (35-47) % MCV 85 (80-97) fL MCH 29 (27-31) pg MCHC 34 (31-36) g/dl RDW 15 (10.5-15) % Plt Count 244 (150-450) 10^3/ul MPV 7.7 (7.4-10.4) um3 Neut % (Auto) 57.9 (38-83) % Lymph % (Auto) 31.3 (25-47) % [place] % (Auto) 5.5 (0-7) % Eos % (Auto) 5.1 (0-6) % Baso % (Auto) 0.2 (0-2) % Absolute Neuts (auto) 5.6 (1.5-7.7) 10^3/ul Absolute Lymphs (auto) 3.0 (1.0-4.8) 10^3/ul Absolute Monos (auto) 0.5 (0-0.8) 10^3/ul Absolute Eos (auto) 0.5 (0-0.6) 10^3/ul Absolute Basos (auto) 0 (0-0.2) 10^3/ul Absolute Nucleated RBC 0 10^3/ul Nucleated RBC % 0 Sodium 136 L (139-145) mmol/L Potassium 3.9 (3.5-5.0) mmol/L Chloride 102 (101-111) mmol/L Carbon Dioxide 23 (22-32) mmol/L Anion Gap 11 (2-11) mmol/L BUN 12 (6-24) mg/dL Creatinine 0.68 (0.51-0.95) mg/dL Est GFR ( Amer) 131.6 (>60) Est GFR (Non-Af Amer) 102.3 (>60) BUN/Creatinine Ratio 17.6 (8-20) Glucose 157 H (70-100) mg/dL Calcium 9.4 (8.6-10.3) mg/dL Total Bilirubin 0.20 (0.2-1.0) mg/dL AST 11 L (13-39) U/L ALT 9 (7-52) U/L Alkaline Phosphatase 59 (34-104) U/L Total Protein 6.9 (6.4-8.9) g/dL Albumin 3.8 (3.2-5.2) g/dL Globulin 3.1 (2-4) g/dL Albumin/Globulin Ratio 1.2 (1-3) Lipase 59 (11.0-82.0) U/L Beta HCG, Quant < 0.60 mIU/mL Result Diagrams: 01/18/18 04:22 03/28/18 04:22 Lab Statement: Any lab studies that have been ordered have been reviewed, and results considered in the medical decision making process. - Radiology Abd XR Radiology Interpretation Completed By: ED Physician - A little stool in right side of abd. Nonobstructive bowel gas pattern. Re-Evaluation - Re-Evaluation First Eval Re-Evaluation Time: 04:56 Comment: Reviewed labs and imaging with pt as well as D/C plan. Abdominal Pain Fem Course/Dx - Course Course Of Treatment: I-STOP was reviewed and revealed many opiate prescriptions since 10/24/17. Pt's abd is non-tender. She presented for pain medication (dental ) seeing me at 1.5d ago. At that time she did not mention any abd issue or diarrhea. Concern is for opiate w/d, though she has no other overt sx. She was unable to give stool specimen here -- but states she collected one for cx/C diff testing at home (ordered by her doctor). I reviewed all pt's lab and xray results. I ordered additional medications which she refused and demanded discharge paperwork. Given her lack of findings, mult prev ED visits, mult prior opiate Rx today's visit seems largely related to opiate depedence, perhaps drug seeking behavior. I've suggested in light of her bowel issues that she should avoid opiate mediations, have her stool testing, take a bowel regimen if she should require opiates. - Diagnoses Differential Diagnosis: Positive: Bowel Obstruction, Constipation, Irritable Bowel Syndrome, Pancreatitis, Peptic Ulcer Disease, , Other - gastritis , opiate w/d syndrome, drug seeking behavior Provider Diagnoses: Chronic abdominal pain, Diarrhea, Opiate dependence Discharge - Sign-Out/Discharge Documenting (check all that apply): Discharge - Discharge Plan Condition: Good Disposition: HOME Prescriptions: Famotidine TAB* [Pepcid 20 MG TAB*] 20 mg PO BID #20 tab Hyoscyamine Sulfate [Oscimin] 0.125 mg PO Q6H PRN #30 tab.rapdis PRN Reason: abdominal cramping Lactobacillus Acidophilus [Acidophilus Lactobacilli] 1 cap PO BID #30 cap Patient Education Materials: Acute Diarrhea (ED), Abdominal Pain (ED) Referrals: No Primary Care Phys,NOPCP [Primary Care Provider] - Additional Instructions: Take your stool specimen previously collected for C diff testing first thing this morning as ordered by your doctor. Avoid opiate medications. Return with high fever, worse or other concerns as discussed. Follow up with Aide Tapia today. - Billing Disposition and Condition Condition: GOOD Disposition: HOME The documentation as recorded by the Steffanie horner Nilda accurately reflects the service I personally performed and the decisions made by me, Abram Heaton MD.
--- NOTE | 2018-01-18 08:05 | RAD ---
HISTORY: Upper abdominal pain COMPARISONS: April 16, 2017 VIEWS: Frontal views of the abdomen. FINDINGS: BOWEL: There is a nonobstructive bowel gas pattern. There is a moderate amount of stool within the colon. CALCULI: There are no abnormal calculi. BONES AND SOFT TISSUES: There are no osseous abnormalities. OTHER FINDINGS: The lung bases are clear. There is no subphrenic gas. Surgical clips are noted in the right upper quadrant. IMPRESSION: NONOBSTRUCTIVE BOWEL GAS PATTERN.
== END 2018-01-18 05:12 | disposition home or self-care (01) ==
LOC: ED 03:42
DX: R10.9 Unspecified abdominal pain (principal); G89.29 Other chronic pain; R19.7 Diarrhea, unspecified; F11.29 Opioid dependence with unspecified opioid-induced disorder
CPT/HCPCS: 36415; 74018; 80053; 83690; 84702; 85025; 96374; 96375; 99284; J1200; J2405

== ENCOUNTER 2018-03-21 11:38 | Emergency (ER) | payer OTHER ==
[2018-03-21 13:37] LABS: ABS Basophils 0.1 10^3/ul (0-0.2); ABS Eosinophils 0.3 10^3/ul (0-0.6); ABS Lymphocytes 2.1 10^3/ul (1.0-4.8); ABS Monocytes 0.4 10^3/ul (0-0.8); ABS Neutrophils 5.1 10^3/ul (1.5-7.7); ABS Nucleated RBC 0 10^3/ul; Eosinophil % 3.4 % (0-6); Hematocrit 46 % (35-47); Hemoglobin 15.8 g/dl (12.0-16.0); Lymphocyte % 26.9 % (25-47); Mean Corpuscular HGB Conc 34 g/dl (31-36); Mean Corpuscular Hemoglobin 29 pg (27-31); Mean Corpuscular Volume 84 fL (80-97); Mean Platelet Volume 8.1 um3 (7.4-10.4); Nucleated Red Blood Cells % 0; Platelet Count 264 10^3/ul (150-450); Red Blood Count 5.48 10^6/ul (4.0-5.4); Red Cell Distribution Width 15 % (10.5-15); White Blood Count 7.9 10^3/ul (3.5-10.8)
[2018-03-21 13:45] LABS: Urine Appearance Cloudy; Urine Blood 2+ (Negative); Urine Color Yellow; Urine Ketones Negative (Negative); Urine Protein Negative (Negative); Urine Specific Gravity 1.014 (1.010-1.030); Urine Urobilinogen Negative (Negative)
[2018-03-21 14:00] LABS: EGFR Non-African American 97.3 (>60)
[2018-03-21] MEDS ORDERED: NS 0.9% 1000 ML* 1,000 ML IV ONE (15:25)
[2018-03-21] MEDS ORDERED: Ketorolac INJ* 30 MG/ML 1 ML VIAL IV PUSH ONE (15:25)
[2018-03-21] MEDS ORDERED: Metoclopramide IV* 5 MG/ML 2 ML VIAL IV ONE (15:25)
--- NOTE | 2018-03-21 16:02 | RAD ---
Indication: Right flank pain. CT of the abdomen and pelvis was performed without oral or IV contrast demonstration. Coronal and sagittal reconstructed images were obtained. The lung bases demonstrate no pleural fluid, nodules or masses. Heart is of normal size without evidence of pericardial effusion. The liver is normal in size. No focal lesions or intrahepatic ductal dilatation is noted. The patient is status post cholecystectomy. The pancreas demonstrates no mass or pancreatic ductal dilatation. The spleen is normal in size. No adrenal masses are noted. The kidneys demonstrates no hydronephrosis. No retroperitoneal lymphadenopathy is noted. No dilated loops of bowel are noted. The uterus and ovaries are unremarkable. No dilated bowel are noted. No hernias are identified. Patient is status post appendectomy. IMPRESSION: No obstructive uropathy. Patient is status post appendectomy. No abnormal masses or fluid collections are noted. No obstruction is noted.
[2018-03-21 16:49] VITALS: BP 000/00
--- NOTE | 2018-03-21 17:32 | ED ---
Hiren Lu Angela, scribed for Raleigh Davis MD on 03/21/18 at 1530 . Back Pain - HPI Summary HPI Summary: This pt is a 27 y/o female presenting [place] [facility] c/o right sided back pain x3 days , progressively worsening. Pt reports her back pain radiates to her right flank. She describes her pain as sharp. She additionally notes nausea and diarrhea last night. Denies fever, vomiting. Pt has hx of ovarian cyst and kidney stones. She states this pain feels like her past kidney stones. - History of Current Complaint Chief Complaint: EDFlankPain Stated Complaint: FLANK PAIN Time Seen by Provider: 03/21/18 15:22 Hx Obtained From: Patient Hx Last Menstrual Period: now Onset/Duration: Lasting Days, Still Present Onset/Duration: Started Days Ago, Still Present Timing: Lasting Days Back Pain Location: Is Discrete @ - right sided back pain, Radiates To - right flank Severity Currently: Severe Pain Intensity: 8 Pain Scale Used: 0-10 Numeric Character: Sharp Aggravating Symptom(s): Nothing Alleviating Symptom(s): Nothing Associated Signs And Symptoms: Positive: Flank Pain - right, Other - POS: nausea , diarrhea. Negative: Fever - Allergies/Home Medications Allergies/Adverse Reactions: Allergies Allergy/AdvReac Type Severity Reaction Status Date / Time aspirin Allergy Hives Verified 01/16/18 13:38 erythromycin base Allergy Hives Verified 01/16/18 13:38 ketorolac [From Toradol] Allergy Hives Verified 01/16/18 13:38 latex Allergy See Comment Verified 01/16/18 13:38 meloxicam Allergy Hives Verified 01/16/18 13:38 PMH/Surg Hx/FS Hx/Imm Hx Endocrine/Hematology History: Denies: Hx Thyroid Disease Comment Only: Hx Diabetes - FAMILY HX Cardiovascular History: Denies: Hx Hypertension Respiratory History: Reports: Hx Asthma Denies: Hx Chronic Obstructive Pulmonary Disease (COPD) GI History: Denies: Hx Ulcer History: Reports: Hx Kidney Stones Psychiatric History: Reports: Hx Anxiety - Surgical History Surgery Procedure, Year, and Place: R knee; tubes in ears; appendectomy, cholecystectomy, - Immunization History Date of Tetanus Vaccine: within 10 years per pt. Date of Influenza Vaccine: 09/2012 Infectious Disease History: No Infectious Disease History: Denies: Hx Clostridium Difficile, Hx Hepatitis, Hx Human Immunodeficiency Virus (HIV), Hx of Known/Suspected MRSA, Hx Shingles, Hx Tuberculosis, Hx Known/ Suspected VRE, Hx Known/Suspected VRSA, History Other Infectious Disease, Traveled Outside the [place] in Last 30 Days - Family History Known Family History: Positive: Hypertension, Diabetes, Renal Disease - Social History Alcohol Use: None Substance Use Type: Reports: None Smoking Status (MU): Light Every Day Tobacco Smoker Type: Cigarettes Amount Used/How Often: 3 cigs per day Length of Time of Smoking/Using Tobacco: 10 years Have You Smoked in the Last Year: Yes Review of Systems Negative: Fever Eyes: Negative Positive: Diarrhea, Nausea Positive: flank pain - right Musculoskeletal: Other - right sided back pain All Other Systems Reviewed And Are Negative: Yes Physical Exam - Summary Physical Exam Summary: VITAL SIGNS: Reviewed. GENERAL: Patient is an obese female who is lying comfortable in the stretcher. Patient is not in any acute respiratory distress. HEAD AND FACE: No signs of trauma. No ecchymosis, hematomas or skull depressions. No sinus tenderness. EYES: PERRLA, EOMI x 2, No injected conjunctiva, no nystagmus. EARS: Hearing grossly intact. Ear canals and tympanic membranes are within normal limits. MOUTH: Oropharynx within normal limits. NECK: Supple, trachea is midline, no adenopathy, no JVD, no carotid bruit, no c- spine tenderness, neck with full ROM. CHEST: Symmetric, no tenderness at palpation LUNGS: Clear to auscultation bilaterally. No wheezing or crackles. CVS: Regular rate and rhythm, S1 and S2 present, no murmurs or gallops appreciated. ABDOMEN: Soft. No signs of distention. No rebound no guarding, and no masses palpated. Bowel sounds are normal. Right costovertebral angle tenderness. EXTREMITIES: FROM in all major joints, no edema, no cyanosis or clubbing. NEURO: Alert and oriented x 3. No acute neurological deficits. Speech is normal and follows commands. SKIN: Dry and warm Triage Information Reviewed: Yes Vital Signs On Initial Exam: Initial Vitals Temp Pulse Resp BP Pulse Ox 98.2 F 91 16 152/113 98 03/21/18 11:57 03/21/18 11:57 03/21/18 11:57 03/21/18 11:57 05/29/18 11:57 Vital Signs Reviewed: Yes Diagnostics - Vital Signs Vital Signs Temp Pulse Resp BP Pulse Ox 03/21/18 13:17 97.3 F 86 16 130/106 97 03/21/18 11:57 98.2 F 91 16 152/113 98 - Laboratory Lab Results: Lab Results 03/21/18 03/21/18 03/21/18 Range/Units 12:57 12:57 13:23 WBC 7.9 (3.5-10.8) 10^3/ul RBC 5.48 H (4.0-5.4) 10^6/ul Hgb 15.8 (12.0-16.0) g/dl Hct 46 (35-47) % MCV 84 (80-97) fL MCH 29 (27-31) pg MCHC 34 (31-36) g/dl RDW 15 (10.5-15) % Plt Count 264 (150-450) 10^3/ul MPV 8.1 (7.4-10.4) um3 Neut % (Auto) 63.9 (38-83) % Lymph % (Auto) 26.9 (25-47) % [place] % (Auto) 5.0 (0-7) % Eos % (Auto) 3.4 (0-6) % Baso % (Auto) 0.8 (0-2) % Absolute Neuts (auto) 5.1 (1.5-7.7) 10^3/ul Absolute Lymphs (auto) 2.1 (1.0-4.8) 10^3/ul Absolute Monos (auto) 0.4 (0-0.8) 10^3/ul Absolute Eos (auto) 0.3 (0-0.6) 10^3/ul Absolute Basos (auto) 0.1 (0-0.2) 10^3/ul Absolute Nucleated RBC 0 10^3/ul Nucleated RBC % 0 Sodium 138 L (139-145) mmol/L Potassium 3.9 (3.5-5.0) mmol/L Chloride 106 (101-111) mmol/L Carbon Dioxide 23 (22-32) mmol/L Anion Gap 9 (2-11) mmol/L BUN 8 (6-24) mg/dL Creatinine 0.71 (0.51-0.95) mg/dL Est GFR ( Amer) 125.2 (>60) Est GFR (Non-Af Amer) 97.3 (>60) BUN/Creatinine Ratio 11.3 (8-20) Glucose 96 (70-100) mg/dL Calcium 9.5 (8.6-10.3) mg/dL Total Bilirubin 0.40 (0.2-1.0) mg/dL AST 13 (13-39) U/L ALT 12 (7-52) U/L Alkaline Phosphatase 53 (34-104) U/L Total Protein 7.4 (6.4-8.9) g/dL Albumin 4.3 (3.2-5.2) g/dL Globulin 3.1 (2-4) g/dL Albumin/Globulin Ratio 1.4 (1-3) Urine Color Yellow Urine Appearance Cloudy Urine pH 6.0 (5-9) Ur Specific [place] 1.014 (1.010-1.030) Urine Protein Negative (Negative) Urine Ketones Negative (Negative) Urine Blood 2+ A (Negative) Urine Nitrate Negative (Negative) Urine Bilirubin Negative (Negative) Urine Urobilinogen Negative (Negative) Ur Leukocyte Esterase Negative (Negative) Urine WBC (Auto) Trace(0-5/hpf) (Absent) Urine RBC (Auto) 3+(>10/hpf) A (Absent) Ur Squamous Epith Cells Present A (Absent) Urine Bacteria 1+ A (Absent) Urine Glucose Negative (Negative) Result Diagrams: 03/21/18 12:57 03/21/18 12:57 Lab Statement: Any lab studies that have been ordered have been reviewed, and results considered in the medical decision making process. - CT Abdomen/Pelvis CT CT Interpretation: No Acute Changes - IMPRESSION: No obstructive uropathy. Patient is status post appendectomy. No abnormal masses or fluid collections are noted. No obstruction is noted. Dr. Davis has reviewed this radiology report. CT Interpretation Completed By: Radiologist Back Pain Course/Dx - Course Assessment/Plan: This pt is a 27 y/o female presenting [place] [facility] c/o right sided back pain x3 days, progressively worsening. Pt reports her back pain radiates to her right flank. She describes her pain as sharp. She additionally notes nausea and diarrhea last night. Denies fever, vomiting. Pt has hx of ovarian cyst and kidney stones. She states this pain feels like her past kidney stones. Blood test results without any significant abnormality except for sodium 138, and a urinalysis was contaminated. Abdominopelvic CT impression: Non- obstructive uropathy. Patient is status post appendectomy. No abnormal masses or fluid collections are noted. No obstruction is noted. In the ED course the patient was given IV fluids and Toradol for the pain. She reports that she had an emergency and she wants to sign AGAINST MEDICAL ADVICE. I extensively discussed with the patient the benefits and risk of leaving AMA. I also discussed the alternatives to leaving AMA, however, the patient still insist to leave the hospital AMA.. The primary nurse and the charge nurse also strongly recommended that the patient should not leave AMA. Patient understands the risk of leaving AMA, which includes but is not restricted to . Patient is Alert and oriented times three and patient verbalizes understanding. Patient has full capacity and is cognitively intact. Patient signed the AMA form. Patient was also advised to return to ED if he changes his mind or if the symptoms worsen or other symptoms appear. Patient understands and agrees. - Diagnoses Differential Diagnosis/HQI/PQRI: Positive: Renal Colic, Strain, Sprain Provider Diagnoses: Flank pain Discharge - Sign-Out/Discharge Documenting (check all that apply): Discharge/Admit/Transfer - Discharge Plan Condition: Stable Disposition: AGAINST MEDICAL ADVICE Referrals: No Primary Care Phys,NOPCP [Primary Care Provider] - - Billing Disposition and Condition Condition: STABLE Disposition: AMA The documentation as recorded by the Hiren horner Angela accurately reflects the service I personally performed and the decisions made by me, Raleigh Davis MD.
== END 2018-03-21 16:48 | disposition left against medical advice (07) ==
LOC: ED 11:38
DX: R10.9 Unspecified abdominal pain (principal); Z98.890 Other specified postprocedural states; Z87.442 Personal history of urinary calculi; Z88.6 Allergy status to analgesic agent; Z88.3 Allergy status to other anti-infective agents; Z88.5 Allergy status to narcotic agent; Z88.8 Allergy status to other drugs, medicaments and biological substances
CPT/HCPCS: 36415; 74176; 80053; 81003; 81015; 85025; 87086; 96374; 99282; J1885; J2765

== ENCOUNTER 2018-05-12 08:08 | Emergency (ER) | payer OTHER ==
[2018-05-12] MEDS ORDERED: Ondansetron ODT TAB* 4 MG PO ONE (09:47)
--- NOTE | 2018-05-12 09:55 | UC ---
Complaint Female HPI - HPI Summary HPI Summary: 3 DAYS OF LEFT FLANK PAIN AND URINARY FREQUENCY. ALSO HAS NAUSEA. NO FEVER. HAS A HISTORY OF KIDNEY STONE 6 MONTHS AGO. DID NOT FOLLOW-UP WITH UROLOGY AT THAT TIME. - History Of Current Complaint Chief Complaint: UCGU Stated Complaint: BACK PAIN Hx Obtained From: Patient Hx Last Menstrual Period: 04/21/18 Onset/Duration: Gradual Onset, Lasting Days, Still Present Timing: Constant Severity Initially: Moderate Severity Currently: Moderate Pain Intensity: 7 Pain Scale Used: 0-10 Numeric Character: Sharp Aggravating Factor(s): Movement Alleviating Factor(s): Nothing Associated Signs And Symptoms: Positive: Back Pain, Nausea - Allergies/Home Medications Allergies/Adverse Reactions: Allergies Allergy/AdvReac Type Severity Reaction Status Date / Time aspirin Allergy Hives Verified 01/16/18 13:38 erythromycin base Allergy Hives Verified 01/16/18 13:38 ketorolac [From Toradol] Allergy Hives Verified 01/16/18 13:38 latex Allergy See Comment Verified 01/16/18 13:38 meloxicam Allergy Hives Verified 01/16/18 13:38 PMH/Surg Hx/FS Hx/Imm Hx Respiratory History: Asthma GI/ History: Kidney Stones - Surgical History Surgical History: Yes Surgery Procedure, Year, and Place: R knee; tubes in ears; appendectomy, cholecystectomy, - Family History Known Family History: Positive: Hypertension, Diabetes, Renal Disease Family History: KIDNEY STONES - Social History Alcohol Use: None Substance Use Type: None Smoking Status (MU): Light Every Day Tobacco Smoker Type: Cigarettes Amount Used/How Often: 3 cigs per day Length of Time of Smoking/Using Tobacco: 10 years Have You Smoked in the Last Year: Yes Household Exposure Type: Cigarettes - Immunization History Most Recent Influenza Vaccination: fall 2015 Review of Systems Constitutional: Negative Respiratory: Negative Cardiovascular: Negative Gastrointestinal: Nausea Genitourinary: Frequency All Other Systems Reviewed And Are Negative: Yes Physical Exam Triage Information Reviewed: Yes Appearance: Well-Nourished, Pain Distress - MODERATE Vital Signs: Initial Vital Signs Temp 97.8 F 05/12/18 08:12 Pulse 94 05/12/18 08:12 Resp 16 05/12/18 08:12 BP 180/100 05/12/18 08:12 Pulse Ox 100 05/12/18 08:12 Laboratory Tests 05/12/18 05/12/18 08:25 08:27 POC Urine Color Berta POC Urine Clarity Cloudy POC Urine pH 5.0 POC Ur Specif [place] >= 1.030 POC Urine Protein Trace A POC Ur Glucose (UA) Negative POC Urine Ketones Negative POC Urine Blood 3+ A POC Urine Nitrite Negative POC Urine Bilirubin Negative POC Urine Urobilinogen 0.2 POC U Leukocyte Esteras Negative POC Ur Test Negative Vital Signs Reviewed: Yes Eyes: Positive: Conjunctiva Clear ENT: Positive: Hearing grossly normal Neck: Positive: Supple Respiratory: Positive: No respiratory distress, No accessory muscle use Cardiovascular: Positive: Pulses Normal Abdomen Description: Positive: Soft, CVA Tenderness (L). Negative: CVA Tenderness (R) Musculoskeletal: Positive: No Edema Neurological: Positive: Alert Psychological: Positive: Age Appropriate Behavior Skin: Negative: rashes Complaint Female Dx - Course Course Of Treatment: NO KIDNEY STONE SEEN ON CT TODAY BUT 3+ BLOOD IN URINE. NO LEUKS. HAS H/O KIDNEY STONE ABOUT 6 MONTHS AGO. PT DID NOT F/U WITH UROLOGY AT THAT TIME. 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 - Differential Dx/Diagnosis Provider Diagnoses: HEMATURIA Discharge - Sign-Out/Discharge Documenting (check all that apply): Patient Departure - Discharge Plan Condition: Stable Disposition: HOME Prescriptions: HYDROcodone/ACETAMIN 5-325 MG* [[place] 5-325 TAB*] 1 tab PO Q6H PRN #15 tab MDD 4 PRN Reason: Pain Ondansetron ODT TAB* [Zofran Odt TAB*] 4 mg PO Q6H PRN #20 tab.odt PRN Reason: Nausea/Vomiting Patient Education Materials: Hematuria (ED) Referrals: [facility] [Provider Group] - 5 Days Additional Instructions: NO INDICATION OF KIDNEY STONE ON CT SCAN TODAY. YOU DO HAVE A LOT OF MICROSCOPIC BLOOD IN YOUR URINE HOWEVER SO WOULD RECOMMEND YOU FOLLOW-UP WITH UROLOGY FOR FURTHER EVALUATION. NAUSEA MEDS AND PAIN MEDS PROVIDED TODAY ALONG WITH A URINE STRAINER GIVEN YOUR HISTORY OF PREVIOUS KIDNEY STONE. GO TO THE ED WITHOUT FAIL IF YOU DEVELOP WORSENING PAIN, FEVER, NAUSEA, SYDNEE BLOOD IN THE URINE OR ANY OTHER CONCERNING SYMPTOMS. - Billing Disposition and Condition Condition: STABLE Disposition: Home
[2018-05-12 10:23] VITALS: BP 140/83
--- NOTE | 2018-05-12 10:38 | RAD ---
CLINICAL HISTORY: LEFT FLANK PAIN, HEMATURIA, H/O STONE COMPARISON: March 21, 2018 TECHNIQUE: Multiple contiguous axial CT scans were obtained of the abdomen and pelvis, without intravenous contrast enhancement. Coronal and sagittal multiplanar reformations are submitted for review. Oral contrast was not administered. FINDINGS: The study is limited by the lack of intravenous contrast. This limits evaluation of the solid organs and vasculature. LUNG BASES: The lung bases are clear. LIVER: There is a Carlos's lobe of liver. BILE DUCTS: There is no intrahepatic or extrahepatic biliary dilatation. GALLBLADDER: The gallbladder is not visualized. Surgical clips are noted in the gallbladder fossa. PANCREAS: The pancreas is normal, without mass or ductal dilatation. SPLEEN: Normal in size and appearance. UPPER GI TRACT: Evaluation of the gastrointestinal tract is limited by incomplete gastric distention. The upper GI tract is unremarkable. SMALL BOWEL AND MESENTERY: The small bowel is normal in contour, course, and caliber. There is no obstruction or dilatation. COLON: The colon is normal in contour, course, caliber. There is no pericolonic inflammatory change. ADRENALS: Normal bilaterally. KIDNEYS: The kidneys are normal in shape, size, contour, and axis. There is no hydronephrosis or nephrolithiasis. BLADDER: The bladder is incompletely distended but is grossly normal. PELVIC ORGANS: The uterus and adnexa are grossly normal for technique. AORTA: The aorta is normal. IVC: Unremarkable LYMPH NODES: There is no lymphadenopathy by size criteria. ABDOMINAL WALL: There is no evidence for abdominal wall hernia. BONES AND SOFT TISSUES: There are mild diffuse degenerative changes. OTHER: None IMPRESSION: NO APPRECIABLE HYDRONEPHROSIS OR NEPHROLITHIASIS.
== END 2018-05-12 11:00 | disposition home or self-care (01) ==
LOC: UCEAST 08:08
DX: R31.9 Hematuria, unspecified (principal); J45.909 Unspecified asthma, uncomplicated; F17.210 Nicotine dependence, cigarettes, uncomplicated; Z88.6 Allergy status to analgesic agent; Z88.1 Allergy status to other antibiotic agents; Z88.8 Allergy status to other drugs, medicaments and biological substances; Z91.040 Latex allergy status
CPT/HCPCS: 74176; 81003; 84702; 99212; A9270-GY; G0463

== ENCOUNTER 2018-05-12 14:15 | Emergency (ER) | payer OTHER ==
[2018-05-12] MEDS ORDERED: HYDROcodone/ACETAMIN 5-325 MG* 1 TAB PO ONE (16:02)
[2018-05-12 16:34] LABS: ABS Basophils 0.1 10^3/ul (0-0.2); ABS Eosinophils 0.4 10^3/ul (0-0.6); ABS Lymphocytes 2.8 10^3/ul (1.0-4.8); ABS Monocytes 0.6 10^3/ul (0-0.8); ABS Neutrophils 6.1 10^3/ul (1.5-7.7); ABS Nucleated RBC 0 10^3/ul; Eosinophil % 4.1 % (0-6); Hematocrit 43 % (35-47); Hemoglobin 14.6 g/dl (12.0-16.0); Lymphocyte % 28.2 % (25-47); Mean Corpuscular HGB Conc 34 g/dl (31-36); Mean Corpuscular Hemoglobin 29 pg (27-31); Mean Corpuscular Volume 85 fL (80-97); Mean Platelet Volume 7.9 um3 (7.4-10.4); Nucleated Red Blood Cells % 0; Platelet Count 266 10^3/ul (150-450); Red Blood Count 5.02 10^6/ul (4.00-5.40); Red Cell Distribution Width 15 % (10.5-15); White Blood Count 10.1 10^3/ul (3.5-10.8)
--- NOTE | 2018-05-12 16:39 | RAD ---
INDICATION: Chest pain COMPARISON: July 14, 2009 TECHNIQUE: PA and lateral dual-energy views were obtained. FINDINGS: Bones/Soft Tissues: There are no acute bony findings. There is prominent kyphosis. Cardiomediastinal: The cardiomediastinal silhouette is normal. Lungs: There are no infiltrates. There is no pneumothorax Pleura: There are no pleural effusions. Other: None IMPRESSION: KYPHOSIS. LUNGS CLEAR.
[2018-05-12 16:53] LABS: EGFR Non-African American 82.4 (>60)
[2018-05-12 17:20] LABS: Urine Appearance Cloudy; Urine Blood 3+ (Negative); Urine Ketones Negative (Negative); Urine Protein 2+(100 mg/dL) (Negative); Urine Red Blood Cell 3+(>10/hpf) (Absent); Urine Specific Gravity 1.024 (1.010-1.030); Urine Urobilinogen Negative (Negative); Urine White Blood Cell Absent (Absent)
[2018-05-12 17:21] LABS: Urine Color Amber
[2018-05-12 17:25] VITALS: BP 141/94
--- NOTE | 2018-05-13 09:20 | ED ---
HPI Chest Pain - HPI Summary HPI Summary: Patient is a 27-year-old female [facility] for elevated blood pressure and concern for kidney function. She was noted to have a high blood pressure there of 180's systolic over 100's diastolic. She was called to come to the ED for concern of kidney function as she had been complaining of left-sided flank pain. CT abdomen/pelvis without contrast performed at [facility] without findings suggestive of renal calculi. Patient has a history of PTSD and severe anxiety. She states her chest pain could be secondary to her PTSD, but wanted to make sure. BP on arrival 161/ 123. No history of hypertension. However, he endorses a strong family history of hypertension. She states she has been followed by her PCP and has never had continuous elevated BPs, however when she visits her physician she will have elevated BPs on the first check and immediately will reduce during her visit. She denies any headache, confusion, memory loss, neck pain, abdominal pain or urinary symptoms. - History of Current Complaint Chief Complaint: EDChestPainROMI Time Seen by Provider: 05/12/18 15:53 Hx Obtained From: Patient Hx Last Menstrual Period: 04/21/18 Onset/Duration: Started Hours Ago Timing: Constant Initial Severity: Moderate Current Severity: Moderate Pain Intensity: 0 Pain Scale Used: 0-10 Numeric Chest Pain Radiates: No Aggravating Factor(s): Nothing Alleviating Factor(s): Nothing Associated Signs and Symptoms: Positive: Negative - Allergy/Home Medications Allergies/Adverse Reactions: Allergies Allergy/AdvReac Type Severity Reaction Status Date / Time aspirin Allergy Hives Verified 01/16/18 13:38 erythromycin base Allergy Hives Verified 01/16/18 13:38 ketorolac [From Toradol] Allergy Hives Verified 01/16/18 13:38 latex Allergy See Comment Verified 01/16/18 13:38 meloxicam Allergy Hives Verified 01/16/18 13:38 Home Medications: Home Medications Gabapentin CAP(*) [Neurontin 300 CAP(*)] 600 mg PO TID PRN 05/12/18 [History Confirmed 05/12/18] clonazePAM TAB(*) [KlonoPIN TAB(*)] 1 mg PO BID PRN 05/12/18 [History Confirmed 05/12/18] PMH/Surg Hx/FS Hx/Imm Hx Previously Healthy: Yes Endocrine/Hematology History: Denies: Hx Thyroid Disease Comment Only: Hx Diabetes - FAMILY HX Cardiovascular History: Denies: Hx Hypertension Respiratory History: Reports: Hx Asthma Denies: Hx Chronic Obstructive Pulmonary Disease (COPD) GI History: Denies: Hx Ulcer History: Reports: Hx Kidney Stones Psychiatric History: Reports: Hx Anxiety - Surgical History Surgery Procedure, Year, and Place: R knee; tubes in ears; appendectomy, cholecystectomy, - Immunization History Date of Tetanus Vaccine: within 10 years per pt. Date of Influenza Vaccine: 09/2012 Infectious Disease History: No Infectious Disease History: Denies: Hx Clostridium Difficile, Hx Hepatitis, Hx Human Immunodeficiency Virus (HIV), Hx of Known/Suspected MRSA, Hx Shingles, Hx Tuberculosis, Hx Known/ Suspected VRE, Hx Known/Suspected VRSA, History Other Infectious Disease, Traveled Outside the [place] in Last 30 Days - Family History Known Family History: Positive: Hypertension, Diabetes, Renal Disease Family History: KIDNEY STONES - Social History Occupation: Employed Full-time Lives: With Family Alcohol Use: None Hx Substance Use: No Substance Use Type: Reports: None Hx Tobacco Use: No Smoking Status (MU): Light Every Day Tobacco Smoker Type: Cigarettes Amount Used/How Often: 3 cigs per day Length of Time of Smoking/Using Tobacco: 10 years Have You Smoked in the Last Year: Yes Review of Systems Constitutional: Negative Negative: Fever, Chills, Fatigue, Skin Diaphoresis Negative: Photophobia, Blurred Vision Positive: Chest Pain Negative: Shortness Of Breath, Cough Genitourinary: Negative Positive: no symptoms reported, see HPI, other - left flank pain Negative: Arthralgia, Myalgia Neurological: Negative Positive: Anxious All Other Systems Reviewed And Are Negative: Yes Physical Exam Triage Information Reviewed: Yes Vital Signs On Initial Exam: Initial Vitals Temp Pulse Resp BP Pulse Ox 98.7 F 89 16 141/84 98 05/12/18 14:22 05/12/18 14:22 05/12/18 14:22 05/12/18 14:22 05/12/18 14:22 Vital Signs Reviewed: Yes Appearance: Positive: No Pain Distress, Well-Nourished Skin: Positive: Warm, Skin Color Reflects Adequate Perfusion Head/Face: Positive: Normal Head/Face Inspection Eyes: Positive: EOMI, RUPESH, Conjunctiva Clear Neck: Positive: Supple, Nontender, No Lymphadenopathy Respiratory/Lung Sounds: Positive: Clear to Auscultation, Breath Sounds Present Cardiovascular: Positive: RRR, Pulses are Symmetrical in both Upper and Lower Extremities Musculoskeletal: Positive: Normal, Strength/ROM Intact Neurological: Positive: Speech Normal Psychiatric: Positive: Affect/Mood Appropriate AVPU Assessment: Alert Diagnostics - Vital Signs Vital Signs Temp Pulse Resp BP Pulse Ox 05/12/18 17:28 98.4 F 73 22 141/94 98 05/12/18 17:08 75 22 98 05/12/18 16:30 83 14 141/94 98 05/12/18 16:01 72 16 99 05/12/18 16:00 80 21 161/123 98 05/12/18 15:54 70 99 05/12/18 14:22 98.7 F 89 16 141/84 98 - Laboratory Lab Results: Lab Results 05/12/18 05/12/18 05/12/18 Range/Units 16:16 16:16 16:16 WBC 10.1 (3.5-10.8) 10^3/ul RBC 5.02 (4.00-5.40) 10^6/ul Hgb 14.6 (12.0-16.0) g/dl Hct 43 (35-47) % MCV 85 (80-97) fL MCH 29 (27-31) pg MCHC 34 (31-36) g/dl RDW 15 (10.5-15) % Plt Count 266 (150-450) 10^3/ul MPV 7.9 (7.4-10.4) um3 Neut % (Auto) 60.6 (38-83) % Lymph % (Auto) 28.2 (25-47) % [place] % (Auto) 6.1 (0-7) % Eos % (Auto) 4.1 (0-6) % Baso % (Auto) 1.0 (0-2) % Absolute Neuts (auto) 6.1 (1.5-7.7) 10^3/ul Absolute Lymphs (auto) 2.8 (1.0-4.8) 10^3/ul Absolute Monos (auto) 0.6 (0-0.8) 10^3/ul Absolute Eos (auto) 0.4 (0-0.6) 10^3/ul Absolute Basos (auto) 0.1 (0-0.2) 10^3/ul Absolute Nucleated RBC 0 10^3/ul Nucleated RBC % 0 ESR 19 H (0-14) mm/Hr Sodium 137 (135-145) mmol/L Potassium 3.5 (3.5-5.0) mmol/L Chloride 107 (101-111) mmol/L Carbon Dioxide 21 L (22-32) mmol/L Anion Gap 9 (2-11) mmol/L BUN 6 (6-24) mg/dL Creatinine 0.82 (0.51-0.95) mg/dL Est GFR ( Amer) 99.7 (>60) Est GFR (Non-Af Amer) 82.4 (>60) BUN/Creatinine Ratio 7.3 L (8-20) Glucose 104 H (70-100) mg/dL Lactic Acid 2.0 (0.5-2.0) mmol/L Calcium 9.4 (8.6-10.3) mg/dL Total Bilirubin 0.40 (0.2-1.0) mg/dL AST 13 (13-39) U/L ALT 11 (7-52) U/L Alkaline Phosphatase 52 (34-104) U/L Troponin I 0.00 (<0.04) ng/mL C-Reactive Protein 7.91 (<8.01) mg/L Total Protein 7.0 (6.4-8.9) g/dL Albumin 4.0 (3.2-5.2) g/dL Globulin 3.0 (2-4) g/dL Albumin/Globulin Ratio 1.3 (1-3) Beta HCG, Quant 0.84 mIU/mL Urine Color Urine Appearance Urine pH (5-9) Ur Specific [place] (1.010-1.030) Urine Protein (Negative) Urine Ketones (Negative) Urine Blood (Negative) Urine Nitrate (Negative) Urine Bilirubin (Negative) Urine Urobilinogen (Negative) Ur Leukocyte Esterase (Negative) Urine WBC (Auto) (Absent) Urine RBC (Auto) (Absent) Ur Squamous Epith Cells (Absent) Urine Bacteria (Absent) Urine Glucose (Negative) 05/12/18 Range/Units 17:09 WBC (3.5-10.8) 10^3/ul RBC (4.00-5.40) 10^6/ul Hgb (12.0-16.0) g/dl Hct (35-47) % MCV (80-97) fL MCH (27-31) pg MCHC (31-36) g/dl RDW (10.5-15) % Plt Count (150-450) 10^3/ul MPV (7.4-10.4) um3 Neut % (Auto) (38-83) % Lymph % (Auto) (25-47) % [place] % (Auto) (0-7) % Eos % (Auto) (0-6) % Baso % (Auto) (0-2) % Absolute Neuts (auto) (1.5-7.7) 10^3/ul Absolute Lymphs (auto) (1.0-4.8) 10^3/ul Absolute Monos (auto) (0-0.8) 10^3/ul Absolute Eos (auto) (0-0.6) 10^3/ul Absolute Basos (auto) (0-0.2) 10^3/ul Absolute Nucleated RBC 10^3/ul Nucleated RBC % ESR (0-14) mm/Hr Sodium (135-145) mmol/L Potassium (3.5-5.0) mmol/L Chloride (101-111) mmol/L Carbon Dioxide (22-32) mmol/L Anion Gap (2-11) mmol/L BUN (6-24) mg/dL Creatinine (0.51-0.95) mg/dL Est GFR ( Amer) (>60) Est GFR (Non-Af Amer) (>60) BUN/Creatinine Ratio (8-20) Glucose (70-100) mg/dL Lactic Acid (0.5-2.0) mmol/L Calcium (8.6-10.3) mg/dL Total Bilirubin (0.2-1.0) mg/dL AST (13-39) U/L ALT (7-52) U/L Alkaline Phosphatase (34-104) U/L Troponin I (<0.04) ng/mL C-Reactive Protein (<8.01) mg/L Total Protein (6.4-8.9) g/dL Albumin (3.2-5.2) g/dL Globulin (2-4) g/dL Albumin/Globulin Ratio (1-3) Beta HCG, Quant mIU/mL Urine Color Berta Urine Appearance Cloudy Urine pH 5.0 (5-9) Ur Specific [place] 1.024 (1.010-1.030) Urine Protein 2+(100 mg/dl) A (Negative) Urine Ketones Negative (Negative) Urine Blood 3+ A (Negative) Urine Nitrate Negative (Negative) Urine Bilirubin Negative (Negative) Urine Urobilinogen Negative (Negative) Ur Leukocyte Esterase Negative (Negative) Urine WBC (Auto) Absent (Absent) Urine RBC (Auto) 3+(>10/hpf) A (Absent) Ur Squamous Epith Cells Present A (Absent) Urine Bacteria Absent (Absent) Urine Glucose Negative (Negative) Result Diagrams: 05/12/18 16:16 05/12/18 16:16 Lab Statement: Any lab studies that have been ordered have been reviewed, and results considered in the medical decision making process. Chest Pain Course/Dx - Course Course Of Treatment: During the course of treatment, the patient's evaluated for right-sided flank pain and chest pain. 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 No acute findings. She is worked up for chest discomfort which is likely secondary to anxiety for her long-standing PTSD. Troponin obtained which is 0.00. Other labs are unremarkable. Urinalysis shows blood without leukocytes. She is given these results. I've advised her to return to the ED for any worsening symptoms or follow up with her PCP. While she is obese , she is still a low risk for CAD she has no personal history and all labs on today's visit were WNL. - Diagnoses Provider Diagnoses: Chest pain, Left flank pain Discharge - Sign-Out/Discharge Documenting (check all that apply): Patient Departure - Discharge Plan Condition: Stable Disposition: HOME Forms: *Work Release Referrals: Aide Durham PA [Primary Care Provider] - Additional Instructions: Please follow up with your PCP Take your at home anxiety medications as prescribed If you develop worsening symptoms - return to the ED No evidence of cardiac or kidney pathology on todays visit Note is given for work - Billing Disposition and Condition Condition: STABLE Disposition: Home
== END 2018-05-12 17:28 | disposition home or self-care (01) ==
LOC: ED 14:15
DX: R07.9 Chest pain, unspecified (principal); F41.9 Anxiety disorder, unspecified; F17.210 Nicotine dependence, cigarettes, uncomplicated; R10.84 Generalized abdominal pain
CPT/HCPCS: 36415; 71046; 80053; 81003; 81015; 83605; 84484; 84702; 85025; 85652; 86140; 99283

== ENCOUNTER 2018-08-02 11:55 | Emergency (ER) | payer OTHER ==
[2018-08-02 12:26] VITALS: BP 175/100
--- NOTE | 2018-08-02 12:45 | UC ---
[facility] HPI - HPI Summary HPI Summary: patient with hx. of broken tooth with pain, using gabapentin for chronic pain , now pain somewhat worse - History of Current Complaint Chief Complaint: UCDentalProblem Stated Complaint: DENTAL Time Seen by Provider: 08/02/18 12:13 Hx Obtained From: Patient Hx Last Menstrual Period: 07/16/18 Onset/Duration: Gradual Onset Pain Intensity: 7 Aggravating Factor(s): Heat, Cold - Allergies/Home Medications Allergies/Adverse Reactions: Allergies Allergy/AdvReac Type Severity Reaction Status Date / Time aspirin Allergy Hives Verified 08/02/18 12:27 erythromycin base Allergy Hives Verified 08/02/18 12:27 ketorolac [From Toradol] Allergy Hives Verified 08/02/18 12:27 latex Allergy See Comment Verified 08/02/18 12:27 meloxicam Allergy Hives Verified 08/02/18 12:27 Home Medications: Home Medications busPIRone TAB* [Buspar TAB*] 5 mg PO DAILY 08/02/18 [History Confirmed 08/02/18] PMH/Surg Hx/FS Hx/Imm Hx Previously Healthy: Yes Psychological History: Anxiety, Depression - Surgical History Surgical History: Yes Surgery Procedure, Year, and Place: R knee; tubes in ears; appendectomy, cholecystectomy, - Family History Known Family History: Positive: Hypertension, Diabetes, Renal Disease Family History: KIDNEY STONES - Social History Alcohol Use: None Substance Use Type: None Smoking Status (MU): Light Every Day Tobacco Smoker Type: Cigarettes Amount Used/How Often: 3 cigs per day Length of Time of Smoking/Using Tobacco: 10 years Have You Smoked in the Last Year: Yes Household Exposure Type: Cigarettes - Immunization History Most Recent Influenza Vaccination: fall 2015 Review of Systems Constitutional: Negative Skin: Negative Eyes: Negative ENT: Other - dental pain Respiratory: Negative Cardiovascular: Negative Gastrointestinal: Negative Genitourinary: Negative Motor: Negative Neurovascular: Negative Musculoskeletal: Negative Psychological: Depressed Is Patient Immunocompromised?: No All Other Systems Reviewed And Are Negative: Yes Physical Exam Triage Information Reviewed: Yes Appearance: Well-Appearing, Obese Vital Signs: Initial Vital Signs Temp 36.6 C 08/02/18 12:24 Pulse 83 08/02/18 12:24 Resp 16 08/02/18 12:24 BP 175/100 08/02/18 12:24 Pulse Ox 100 08/02/18 12:24 Vital Signs Reviewed: Yes Eye Exam: Normal Eyes: Positive: Conjunctiva Clear ENT: Positive: Normal ENT inspection Dental Exam: Other Dental: Positive: Gross Decay/Caries @ - broken teeth , molars left lower with minimal surrounding erythema Neck: Positive: No Lymphadenopathy Respiratory Exam: Normal Respiratory: Positive: Chest non-tender Dental Complaint Course/Dx - Differential Dx/Diagnosis Differential Diagnosis/Dx: Dental Caries, Fractured Tooth Provider Diagnoses: dental caries, broken teeth Discharge - Sign-Out/Discharge Documenting (check all that apply): Patient Departure All imaging exams completed and their final reports reviewed: No Studies - Discharge Plan Condition: Fair Disposition: HOME Patient Education Materials: Toothache (ED) Referrals: Aide Durham PA [Primary Care Provider] - - Billing Disposition and Condition Condition: FAIR Disposition: Home
== END 2018-08-02 13:10 | disposition home or self-care (01) ==
LOC: UCEAST 11:55
DX: K03.81 Cracked tooth (principal); K02.9 Dental caries, unspecified; F41.9 Anxiety disorder, unspecified; Z88.5 Allergy status to narcotic agent; Z88.6 Allergy status to analgesic agent; Z88.1 Allergy status to other antibiotic agents; Z91.040 Latex allergy status; F17.210 Nicotine dependence, cigarettes, uncomplicated
CPT/HCPCS: 99212; G0463

== ENCOUNTER 2018-09-02 10:28 | Emergency (ER) | payer OTHER ==
[2018-09-02 10:40] VITALS: BP 154/102
--- NOTE | 2018-09-02 11:11 | UC ---
Throat Pain/Nasal Justin HPI - HPI Summary HPI Summary: 27-year-old woman comes in with a chief complaint of runny nose sore throat cough chest congestion and shortness of breath. She does have a history of asthma and she is a smoker. Her albuterol is helping some with the shortness of breath but she ran out of the albuterol last night. She has been taking over -the-counter medication with dextromethorphan in it and also been taking some Tessalon Perles which are not helping with cough. She requests something else to help with cough. Symptoms been going on for about 10 days. Everything is getting worse. - History of Current Complaint Chief Complaint: UCRespiratory Stated Complaint: COUGH,CONGESTION Time Seen by Provider: 09/02/18 10:55 Hx Last Menstrual Period: 09/01/18 Pain Intensity: 3 - Allergies/Home Medications Allergies/Adverse Reactions: Allergies Allergy/AdvReac Type Severity Reaction Status Date / Time aspirin Allergy Hives Verified 08/02/18 12:27 erythromycin base Allergy Hives Verified 08/02/18 12:27 ketorolac [From Toradol] Allergy Hives Verified 08/02/18 12:27 latex Allergy See Comment Verified 08/02/18 12:27 meloxicam Allergy Hives Verified 08/02/18 12:27 PMH/Surg Hx/FS Hx/Imm Hx Respiratory History: Asthma - Surgical History Surgical History: Yes Surgery Procedure, Year, and Place: R knee; tubes in ears; appendectomy, cholecystectomy, - Family History Known Family History: Positive: Hypertension, Diabetes, Renal Disease Family History: KIDNEY STONES - Social History Alcohol Use: None Substance Use Type: None Smoking Status (MU): Light Every Day Tobacco Smoker Type: Cigarettes Amount Used/How Often: 3 cigs per day Length of Time of Smoking/Using Tobacco: 10 years Have You Smoked in the Last Year: Yes Household Exposure Type: Cigarettes - Immunization History Most Recent Influenza Vaccination: fall 2015 Review of Systems All Other Systems Reviewed And Are Negative: Yes Constitutional: Positive: Fever, Chills Skin: Positive: Negative Eyes: Positive: Negative ENT: Positive: Sore Throat, Nasal Discharge, Sinus Congestion, Sinus Pain/ Tenderness Respiratory: Positive: Shortness Of Breath, Cough Cardiovascular: Positive: Negative Gastrointestinal: Positive: Negative Motor: Positive: Negative Neurovascular: Positive: Negative Musculoskeletal: Positive: Negative Neurological: Positive: Negative Psychological: Positive: Negative Is Patient Immunocompromised?: No Physical Exam Triage Information Reviewed: Yes Appearance: No Pain Distress, Well-Nourished, Ill-Appearing - MILD Vital Signs: Initial Vital Signs Temp 98 F 09/02/18 10:38 Pulse 89 09/02/18 10:38 Resp 16 09/02/18 10:38 BP 154/102 09/02/18 10:38 Pulse Ox 99 09/02/18 10:38 Vital Signs Reviewed: Yes Eye Exam: Normal Eyes: Positive: Conjunctiva Clear ENT: Positive: Pharyngeal erythema, Nasal congestion, Nasal drainage, TMs normal Neck exam: Normal Neck: Positive: Supple Respiratory: Positive: No respiratory distress, No accessory muscle use, Wheezing, Other: - DRY COUGH Cardiovascular Exam: Normal Cardiovascular: Positive: RRR Musculoskeletal Exam: Normal Musculoskeletal: Positive: Strength Intact, ROM Intact Neurological Exam: Normal Neurological: Positive: Alert, Muscle Tone Normal Psychological Exam: Normal Psychological: Positive: Age Appropriate Behavior Skin Exam: Normal Throat Pain/Nasal Course/Dx - Course Course Of Treatment: DISCUSSED VIRAL VERSES BACTERIAL INFECTIONS AND THE ROLE OF ANTIBIOTIS. THE PATIENT PREFERS TO BE ON ANTIBIOTICS AT THIS TIME. We'll also treat the asthma exacerbation with prednisone. Up with her doctor reevaluation sooner if worse. - Differential Dx/Diagnosis Provider Diagnoses: BRONCHITIS. ASTHMA Discharge - Sign-Out/Discharge Documenting (check all that apply): Patient Departure All imaging exams completed and their final reports reviewed: No Studies - Discharge Plan Condition: Stable Disposition: HOME Prescriptions: Albuterol HFA INHALER* [Ventolin HFA Inhaler*] 2 puff INH Q4H PRN #1 mdi PRN Reason: Wheezing Amoxicillin/Clavulanate TAB* [Augmentin TAB 875*] 875 mg PO BID #20 tab guaiFENesin/CODIEN 100MG-10MG* [Robitussin AC 100Mg-10Mg*] 5 ml PO Q4H PRN #120 ml MDD 30ML PRN Reason: Cough predniSONE TAB* [Deltasone 20 MG TAB*] 40 mg PO DAILY #10 tab Patient Education Materials: Acute Bronchitis (ED), Asthma (ED) Forms: *Work Release Referrals: Aide Durham PA [Primary Care Provider] - Additional Instructions: FOLLOW UP WITH YOUR DOCTOR IF NOT COMPLETELY IMPROVED. GET RECHECKED FOR ANY WORSENING OF YOUR CONDITION OR QUESTIONS OR CONCERNS. - Billing Disposition and Condition Condition: STABLE Disposition: Home
== END 2018-09-02 11:23 | disposition home or self-care (01) ==
LOC: UCEAST 10:28
DX: J45.909 Unspecified asthma, uncomplicated (principal); J40 Bronchitis, not specified as acute or chronic; F17.210 Nicotine dependence, cigarettes, uncomplicated; Z88.6 Allergy status to analgesic agent; Z88.1 Allergy status to other antibiotic agents; Z88.8 Allergy status to other drugs, medicaments and biological substances; Z91.040 Latex allergy status
CPT/HCPCS: 99212; G0463

== ENCOUNTER 2018-10-19 11:45 | Emergency (ER) | payer OTHER ==
[2018-10-19] MEDS ORDERED: Ibuprofen TAB* 600 MG PO ONE (13:42)
[2018-10-19] MEDS ORDERED: Acetaminophen TAB* 325 MG PO ONE (13:43)
[2018-10-19] MEDS ORDERED: Baclofen TAB* 20 MG PO ONE (14:16)
[2018-10-19] MEDS ORDERED: traMADol TAB* 50 MG PO ONE (14:16)
[2018-10-19] MEDS ORDERED: Baclofen TAB* 10 MG ONE (14:27)
[2018-10-19 14:31] VITALS: BP 153/100
--- NOTE | 2018-10-20 06:15 | ED ---
Back Pain - HPI Summary HPI Summary: Patient is a 27-year-old female with history of obesity presenting to the ED after a fall which occurred last evening. She sutures coming down the stairs when the railing detached and she fell onto her back. She endorses pain throughout the spine, most notably along the thoracic and lumbar spine. Worsening pain to the right lower side. She denies LOC or hitting her head. She is tearful on arrival, states she is unable to walk properly and is requesting pain medications. Denies ecchymosis. Denies N/T. - History of Current Complaint Chief Complaint: EDBackInjuryPain Stated Complaint: FEEL DOWN STAIRS Time Seen by Provider: 10/19/18 11:47 Hx Obtained From: Patient Hx Last Menstrual Period: 09/01/18 Onset/Duration: Sudden Onset Onset/Duration: Started Hours Ago Timing: Constant Back Pain Location: Is Diffuse - throughout thoracic and lumbar spine Pain Intensity: 5 Pain Scale Used: 0-10 Numeric Character: Aching Alleviating Symptom(s): Rest Associated Signs And Symptoms: Positive: Negative - Risk Factors AAA Risk Factors: Negative TAD Risk Factors: Negative Cauda Equina Risk Factors: Negative Epidural Abscess Risk Factors: Negative - Allergies/Home Medications Allergies/Adverse Reactions: Allergies Allergy/AdvReac Type Severity Reaction Status Date / Time aspirin Allergy Hives Verified 08/02/18 12:27 erythromycin base Allergy Hives Verified 08/02/18 12:27 ketorolac [From Toradol] Allergy Hives Verified 08/02/18 12:27 latex Allergy See Comment Verified 08/02/18 12:27 meloxicam Allergy Hives Verified 08/02/18 12:27 PMH/Surg Hx/FS Hx/Imm Hx Previously Healthy: Yes Endocrine/Hematology History: Denies: Hx Thyroid Disease Comment Only: Hx Diabetes - FAMILY HX Cardiovascular History: Denies: Hx Hypertension Respiratory History: Reports: Hx Asthma Denies: Hx Chronic Obstructive Pulmonary Disease (COPD) GI History: Denies: Hx Ulcer History: Reports: Hx Kidney Stones Psychiatric History: Reports: Hx Anxiety - Surgical History Surgery Procedure, Year, and Place: R knee; tubes in ears; appendectomy, cholecystectomy, - Immunization History Date of Tetanus Vaccine: within 10 years per pt. Date of Influenza Vaccine: 09/2012 Hx Pertussis Vaccination: No Immunizations Up to Date: Yes Infectious Disease History: No Infectious Disease History: Denies: Hx Clostridium Difficile, Hx Hepatitis, Hx Human Immunodeficiency Virus (HIV), Hx of Known/Suspected MRSA, Hx Shingles, Hx Tuberculosis, Hx Known/ Suspected VRE, Hx Known/Suspected VRSA, History Other Infectious Disease, Traveled Outside the [place] in Last 30 Days - Family History Known Family History: Positive: Hypertension, Diabetes, Renal Disease Family History: KIDNEY STONES - Social History Occupation: Employed Full-time Lives: With Family Alcohol Use: Rare Hx Substance Use: No Substance Use Type: Reports: Marijuana Hx Tobacco Use: No Smoking Status (MU): Light Every Day Tobacco Smoker Type: Cigarettes Amount Used/How Often: 3 cigs per day Length of Time of Smoking/Using Tobacco: 10 years Have You Smoked in the Last Year: Yes Review of Systems Negative: Fever, Chills, Fatigue, Skin Diaphoresis Negative: Palpitations, Chest Pain Negative: Shortness Of Breath, Cough Genitourinary: Negative Positive: no symptoms reported, see HPI Positive: Arthralgia - thoracic and lumbar spine, Myalgia Skin: Negative Neurological: Negative All Other Systems Reviewed And Are Negative: Yes Physical Exam Triage Information Reviewed: Yes Vital Signs On Initial Exam: Initial Vitals Temp Pulse Resp BP Pulse Ox 98.3 F 77 16 147/105 99 10/19/18 11:46 10/19/18 11:46 10/19/18 11:46 10/19/18 11:46 10/19/18 11:46 Vital Signs Reviewed: Yes Appearance: Positive: Well-Nourished Skin: Positive: Warm, Skin Color Reflects Adequate Perfusion Head/Face: Positive: Normal Head/Face Inspection Eyes: Positive: EOMI, RUPESH, Conjunctiva Clear Neck: Positive: No Lymphadenopathy Respiratory/Lung Sounds: Positive: Clear to Auscultation, Breath Sounds Present Cardiovascular: Positive: RRR, Pulses are Symmetrical in both Upper and Lower Extremities Musculoskeletal: Positive: Pain @ - thoracic and lumbar spine Neurological: Positive: Sensory/Motor Intact, Alert, Oriented to Person Place, Time, Speech Normal Psychiatric: Positive: Affect/Mood Appropriate AVPU Assessment: Alert Diagnostics - Vital Signs Vital Signs Temp Pulse Resp BP Pulse Ox 10/19/18 14:30 98.2 F 74 17 153/100 99 10/19/18 11:46 98.3 F 77 16 147/105 99 - Laboratory Lab Statement: Any lab studies that have been ordered have been reviewed, and results considered in the medical decision making process. Back Pain Course/Dx - Course Course Of Treatment: Patient is evaluated for right sided low back pain after a fall. CT of the thoracic and lumbar spine obtained. 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 Degenerative disc disease at T8-T9, T9-T10, T10-T11 and T11-T12. No fracture of the. thoracic spine is noted. IMPRESSION: 1. NO EVIDENCE FOR FRACTURE. 2. AT THE L4-L5 LEVEL THERE IS A SMALL TO MODERATE SIZE LEFT PARACENTRAL DISC PROTRUSION. DESCRIBED ABOVE. On physical examination , she is diffusely tender along the spine and is crying. Patient continues to raise her voice at provider due to her pain level. She is given baclofen and tramadol. She is given a referral follow-up to neurosurgery, however I have advised she use heat and ibuprofen. She is dx with contusion and will likely improve in 2-3 days with rest and gentle stretches. This was discussed with patient, however, she would like a neurosurgery referral. - Diagnoses Differential Diagnosis/HQI/PQRI: Positive: Herniated Disc, Strain, Sprain Provider Diagnoses: Back contusion, Fall Discharge - Sign-Out/Discharge Documenting (check all that apply): Patient Departure - Discharge Plan Condition: Stable Disposition: HOME Prescriptions: Baclofen TAB* [Lioresal TAB*] 10 mg PO TID #9 tab Tramadol 50 MG # 6 TAB PREPAK 50 mg PO TID #6 tab MDD 3 Referrals: Aide Durham PA [Primary Care Provider] - Onur Muhammad MD [Medical Doctor] - Additional Instructions: Moist heat to the area as much as possible Rest Stretch gently after heat has been applied Baclofen up to three times daily for muscle pain/spasms Tramadol up to three times daily for pain Tylenol 650mg three times daily Ibuprofen 600mg three times daily Use all medications intermittently for a more even pain control If symptoms worsen, return to the ED - Billing Disposition and Condition Condition: STABLE Disposition: Home
== END 2018-10-19 14:30 | disposition home or self-care (01) ==
LOC: ED 11:45
DX: S30.0XXA Contusion of lower back and pelvis, initial encounter (principal); M40.204 Unspecified kyphosis, thoracic region; F17.210 Nicotine dependence, cigarettes, uncomplicated; Z87.442 Personal history of urinary calculi; E66.9 Obesity, unspecified; W10.9XXA Fall (on) (from) unspecified stairs and steps, initial encounter; Y92.9 Unspecified place or not applicable; F41.9 Anxiety disorder, unspecified; M51.26 Other intervertebral disc displacement, lumbar region
CPT/HCPCS: 72128; 72131; 99282; A9270-GY